=== PATIENT | male | born 1955 | race Caucasian/White ===

== ENCOUNTER → 2016-08-22 | Outpatient (CLI) | payer BC ==
[2016-08-22 12:31] LABS: Urine Bilirubin Negative (Negative); Urine Blood Negative /uL (Negative); Urine Color Yellow (Yellow); Urine Glucose Normal (Normal); Urine Ketone Negative (Negative); Urine Nitrite Negative (Negative); Urine Urobilinogen Normal (Negative)
[2016-08-22 12:35] LABS: Basophils # (auto) 0 uL; Basophils % (auto) 0.5 % (0.0-2.0); Eosinophils # (auto) 0.1 uL; Eosinophils % (auto) 1.1 % (0.0-7.0); Hematocrit 45.5 % (41.0-53.0); Hemoglobin 15.2 g/dL (13.5-17.5); Lymphocytes # (auto) 1.9 uL; Lymphocytes % (auto) 37.8 % (10.0-50.0); Mean Corpuscular Hemoglobin 30.3 pg (28.0-32.0); Mean Corpuscular Hgb Conc. 33.4 g/dL (32.0-36.0); Mean Corpuscular Volume 90.7 fL (80.0-100.0); Mean Platelet Volume 8.5 fL (7.4-10.4); Monocytes # (auto) 0.4 uL; Monocytes % (auto) 8.6 % (0.0-12.0); Neutrophils # (auto) 2.6 uL; Platelet Count (auto) 233 10^3/uL (140-450); Red Cell Distribution Width 13.7 % (11.6-16.0)
[2016-08-22 13:16] LABS: Albumin 4.6 g/dL (3.4-5.0); BUN/Creatinine Ratio 16.6; Bilirubin, Total 0.7 mg/dL (0.2-1.0); Calcium 10.6 mg/dL (8.5-10.1); Potassium 4.4 mmol/L (3.5-5.1); Total Protein 8.1 g/dL (6.4-8.2)
[2016-08-22 13:33] LABS: Bilirubin, Direct 0.3 mg/dL (0-0.2)
== END | disposition home or self-care (01) ==
LOC: LAB 10:30
PROVIDERS: ATTEND Internal Medicine Cardiovascular Disease
DX: I10 Essential (primary) hypertension (principal); E78.00 Pure hypercholesterolemia, unspecified; K74.1 Hepatic sclerosis; E11.9 Type 2 diabetes mellitus without complications; R97.20 Elevated prostate specific antigen [PSA]; R53.81 Other malaise; E03.9 Hypothyroidism, unspecified; D64.9 Anemia, unspecified; E55.9 Vitamin D deficiency, unspecified; N39.0 Urinary tract infection, site not specified
CPT/HCPCS: 36415; 80048; 80061; 80076; 81003; 82306; 83036; 84153; 84403; 84443; 85025

== ENCOUNTER → 2017-05-15 | Outpatient (CLI) | payer BC, OTHER ==
[~2017-05-15] VITALS: Ht 175.3 cm; Wt 122.9 kg
== END | disposition home or self-care (01) ==
LOC: Rad HDHVI 09:59
PROVIDERS: ATTEND Internal Medicine Cardiovascular Disease
DX: I47.1 Supraventricular tachycardia (principal); N28.9 Disorder of kidney and ureter, unspecified; R07.89 Other chest pain; E11.65 Type 2 diabetes mellitus with hyperglycemia
CPT/HCPCS: 78452; 93017; 96374; A9500

== ENCOUNTER → 2018-03-17 | Outpatient (CLI) | payer BC, OTHER ==
[2018-03-17 11:46] VITALS: BP 142/90
[2018-03-17 12:18] VITALS: BP 159/99
== END | disposition home or self-care (01) ==
LOC: CHF HDHVI 12:01
PROVIDERS: ATTEND Internal Medicine Cardiovascular Disease
DX: I10 Essential (primary) hypertension (principal); E11.9 Type 2 diabetes mellitus without complications
CPT/HCPCS: G0463

== ENCOUNTER → 2018-04-17 | Outpatient (CLI) | payer BC, OTHER ==
[~2018-04-17] VITALS: Ht 175.3 cm; Wt 122.9 kg
== END | disposition home or self-care (01) ==
LOC: Rad HDHVI 08:15
PROVIDERS: ATTEND Internal Medicine Cardiovascular Disease
DX: G47.30 Sleep apnea, unspecified (principal); R06.02 Shortness of breath
CPT/HCPCS: 78452; 93017; 96374; A9500

== ENCOUNTER → 2018-11-26 | Outpatient (CLI) | payer BC, OTHER | END | disposition home or self-care (01) | LOC: LAB 09:31 | PROVIDERS: ATTEND Internal Medicine Cardiovascular Disease | DX: E11.59 Type 2 diabetes mellitus with other circulatory complications (principal); E11.40 Type 2 diabetes mellitus with diabetic neuropathy, unspecified | CPT/HCPCS: 36415; 83036 ==

== ENCOUNTER → 2019-03-26 | Outpatient (CLI) | payer BC, OTHER | END | disposition home or self-care (01) | LOC: LAB 08:51 | PROVIDERS: ATTEND Internal Medicine Cardiovascular Disease | DX: E11.9 Type 2 diabetes mellitus without complications (principal) | CPT/HCPCS: 36415; 83036 ==

== ENCOUNTER → 2019-04-22 | Outpatient (CLI) | payer BC, OTHER ==
[~2019-04-22] VITALS: Ht 175.3 cm; Wt 117.0 kg
== END | disposition home or self-care (01) ==
LOC: Rad HDHVI 13:25
PROVIDERS: ATTEND Internal Medicine Cardiovascular Disease
DX: E11.9 Type 2 diabetes mellitus without complications (principal); E78.5 Hyperlipidemia, unspecified; R21 Rash and other nonspecific skin eruption; L30.9 Dermatitis, unspecified; I10 Essential (primary) hypertension; Z82.49 Family history of ischemic heart disease and other diseases of the circulatory system
CPT/HCPCS: 78452; 93017; 96374; A9500

== ENCOUNTER → 2020-04-18 | Outpatient (CLI) | payer MEDICARE, BC, OTHER | END | disposition home or self-care (01) | LOC: Rad HDHVI 13:52 | PROVIDERS: ATTEND Internal Medicine Cardiovascular Disease | DX: I51.7 Cardiomegaly (principal); R06.02 Shortness of breath; I25.9 Chronic ischemic heart disease, unspecified | CPT/HCPCS: 93306 ==

== ENCOUNTER → 2020-04-25 | Outpatient (CLI) | payer MEDICARE, BC, OTHER ==
[~2020-04-25] VITALS: Ht 175.3 cm; Wt 114.3 kg
== END | disposition home or self-care (01) ==
LOC: Rad HDHVI 08:22
PROVIDERS: ATTEND Internal Medicine Cardiovascular Disease
DX: I10 Essential (primary) hypertension (principal); E11.9 Type 2 diabetes mellitus without complications; E78.00 Pure hypercholesterolemia, unspecified; Z82.49 Family history of ischemic heart disease and other diseases of the circulatory system
CPT/HCPCS: 78452; 93017; 96374; A9500

== ENCOUNTER → 2020-10-03 | Outpatient (CLI) | payer MEDICARE, BC, OTHER ==
[2020-10-03 12:43] LABS: Basophils # (auto) 0 10 ^3/uL (0-0.2); Basophils % (auto) 0.4 % (0.0-2.0); Eosinophils # (auto) 0.1 10 ^3/uL (0-0.8); Eosinophils % (auto) 1.5 % (0.0-7.0); Hematocrit 49.6 % (41.0-53.0); Hemoglobin 17.2 g/dL (13.5-17.5); Lymphocytes # (auto) 2.3 10 ^3/uL (0.4-5.4); Lymphocytes % (auto) 34.7 % (10.0-50.0); Mean Corpuscular Hemoglobin 30.8 pg (28.0-32.0); Mean Corpuscular Hgb Conc. 34.6 g/dL (32.0-36.0); Mean Corpuscular Volume 88.9 fL (80.0-100.0); Monocytes # (auto) 0.5 10 ^3/uL (0-1.3); Monocytes % (auto) 7.5 % (0.0-12.0); Neutrophils # (auto) 3.7 10 ^3/uL (1.6-8.6); Neutrophils % (auto) 55.9 % (37.0-80.0); Nucleated Red Blood Cells % 0.1 %; Platelet Count (auto) 191 10^3/uL (140-450); Red Blood Cells 5.58 10^6/uL (4.5-5.90); Red Cell Distribution Width 13.2 % (11.8-14.3); Urine Blood Negative /uL (Negative); Urine Specific Gravity 1.024 (1.001-1.035); White Blood Cell 6.7 10^3/uL (4.4-10.8)
[2020-10-03 12:55] LABS: Albumin 4.4 g/dL (3.4-5.0); Calcium 9.5 mg/dL (8.5-10.1); Potassium 3.5 mmol/L (3.5-5.1)
[2020-10-03 13:00] LABS: BUN/Creatinine Ratio 18.6; Bilirubin, Direct 0.2 mg/dL (0-0.2); Bilirubin, Total 0.7 mg/dL (0.2-1.0); Total Protein 7.5 g/dL (6.4-8.2)
== END | disposition home or self-care (01) ==
LOC: LAB 09:58
PROVIDERS: ATTEND Internal Medicine Cardiovascular Disease
DX: C61 Malignant neoplasm of prostate (principal); D51.3 Other dietary vitamin B12 deficiency anemia; I10 Essential (primary) hypertension; E11.9 Type 2 diabetes mellitus without complications; E55.9 Vitamin D deficiency, unspecified; D64.9 Anemia, unspecified; R00.2 Palpitations; R53.1 Weakness; R30.0 Dysuria
CPT/HCPCS: 36415; 80048; 80076; 81003; 82306; 83036; 84153; 84403; 84443; 85025

== ENCOUNTER → 2021-04-19 | Outpatient (CLI) | payer MEDICARE, BC, OTHER | END | disposition home or self-care (01) | LOC: Rad HDHVI 08:40 | PROVIDERS: ATTEND Internal Medicine Cardiovascular Disease | DX: R06.02 Shortness of breath (principal) | CPT/HCPCS: 93306 ==

== ENCOUNTER 2021-08-01 06:18 | Inpatient (IN) | payer OTHER ==
[2021-07-28 11:49] LABS: Urine Bacteria NONE SEEN /hpf (None Seen); Urine Blood Negative /uL (Negative); Urine Specific Gravity 1.017 (1.001-1.035); Urine WBC <1 /hpf (0 - 3)
[2021-07-28 12:11] LABS: Potassium 3.4 mmol/L (3.5-5.1)
[2021-07-28 12:16] LABS: Basophils # (auto) 0 10 ^3/uL (0-0.2); Basophils % (auto) 0.3 % (0.0-2.0); Eosinophils # (auto) 0.1 10 ^3/uL (0-0.8); Eosinophils % (auto) 1.3 % (0.0-7.0); Hematocrit 44.5 % (41.0-53.0); Hemoglobin 15.4 g/dL (13.5-17.5); Lymphocytes # (auto) 2.1 10 ^3/uL (0.4-5.4); Lymphocytes % (auto) 39.2 % (10.0-50.0); Mean Corpuscular Hemoglobin 30.3 pg (28.0-32.0); Mean Corpuscular Hgb Conc. 34.7 g/dL (32.0-36.0); Mean Corpuscular Volume 87.4 fL (80.0-100.0); Monocytes # (auto) 0.5 10 ^3/uL (0-1.3); Neutrophils # (auto) 2.7 10 ^3/uL (1.6-8.6); Neutrophils % (auto) 50.2 % (37.0-80.0); Nucleated Red Blood Cells % 0.1 %; Red Blood Cells 5.09 10^6/uL (4.5-5.90); Red Cell Distribution Width 13.2 % (11.8-14.3); White Blood Cell 5.4 10^3/uL (4.4-10.8)
[2021-07-28 12:18] LABS: Albumin 4.3 g/dL (3.4-5.0); BUN/Creatinine Ratio 16.5; Calcium 9.4 mg/dL (8.5-10.1); Total Protein 7.3 g/dL (6.4-8.2)
[~2021-08-01] VITALS: Ht 175.3 cm; Wt 69.0 kg
[~2021-08-01 06:18] MED LIST: ALPR0.25 PO; ASPI-543 PO; CARI-277 PO; DUPI1INJ SC; EMPA1TAB3 PO; EZET10TA24 PO; FENO145T27 PO; HYDR12.56 PO; LOSA25TA38 PO; MULTTAB99 PO; OMEG100078 PO; SEMA2INJ SC; TADA5TAB11 PO; TRAM50TA2 PO
[2021-08-01] MEDS ORDERED: ceFAZolin 1GM/50ML 100 ML IV ONE (06:57)
[2021-08-01] MEDS ORDERED: TRANEXAMIC ACID 20 ML ONE (06:58)
[2021-08-01] MEDS ORDERED: VANCOMYCIN HCL 1000 MG VL ONE (07:00)
[2021-08-01] MEDS ORDERED: KETOROLAC TROMETH 30 MG/ML 1ML VIAL ONE (07:00)
[2021-08-01] MEDS ORDERED: MORPHINE SULF PF 2 MG/2 ML SYRG ONE ×2 (07:08→07:11)
[2021-08-01] MEDS ORDERED: BUPIVACAINE 0.25% INJ 50ML VIAL ONE (07:12)
[2021-08-01] MEDS ORDERED: ROCURONIUM 10MG/ML 10ML VIAL IV ONE (07:19)
[2021-08-01] MEDS ORDERED: fentaNYL CITRATE 5 ML ONE (07:19)
[2021-08-01] MEDS ORDERED: MIDAZOLAM HCL 2MG/2ML 2ml VIAL (1mg/ml) ONE (07:19)
[2021-08-01] MEDS ORDERED: LIDOCAINE 2% (LOCAL ANESTH.) PF 5ml SDV ONE (08:20)
[2021-08-01] MEDS ORDERED: PROPOFOL 10 MG/ML 20 ML IV ONE (08:20)
[2021-08-01] MEDS ORDERED: ONDANSETRON HCL 4 MG/2 ML VIAL ONE (08:20)
[2021-08-01] MEDS ORDERED: HYDROmorphone HCL 2 MG/ML VL ONE (08:20)
[2021-08-01] MEDS ORDERED: HYDROmorphone HCL 2 MG/ML VL IV PRN (08:45)
[2021-08-01] MEDS ORDERED: ONDANSETRON HCL 4 MG/2 ML VIAL IV PRN ×2 (08:45→11:00)
[2021-08-01] MEDS ORDERED: SUGAMMADEX 200mg/2ml Vial (100MG/ML) IV ONE (10:00)
[2021-08-01] MEDS ORDERED: ALPRAZolam 0.25 MG TAB PO PRN (10:45)
[2021-08-01] MEDS ORDERED: traMADol HCL 50 MG TAB PO PRN (10:45)
[2021-08-01] MEDS ORDERED: DEXTROSE (50%) 50ML SYRG IV PRN (11:00)
[2021-08-01] MEDS ORDERED: ACETAMINOPHEN 325 MG TAB PO PRN (11:00)
[2021-08-01] MEDS ORDERED: MORPHINE SULFATE INJECTION 2 MG/ML SYRG IV PRN (11:00)
[2021-08-01] MEDS ORDERED: NITROGLYCERIN 0.4 MG SL TAB SL PRN (11:00)
[2021-08-01] MEDS: HYDROmorphone HCL 2 MG/ML VL IV PRN ×5 (11:13→21:30)
[2021-08-01] MEDS: InsuLIN REG 1unit/0.01ml Soln (100units/ml) SC SCH ×3 (11:53→21:39)
[2021-08-01] MEDS: LACTATED RINGER'S 1,000 ML IV SCH ×2 (11:53→21:34)
[2021-08-01] MEDS: ACCU-CHEK COMFORT CURVE STRIP VI SCH ×3 (11:54→21:35)
[2021-08-01 12:00] VITALS: BP 102/71
[2021-08-01] MEDS: ceFAZolin 1GM/50ML 50 ML IV SCH ×2 (13:25→18:20)
[2021-08-01 16:00] VITALS: BP 106/67
[2021-08-01] MEDS: DOCUSATE SOD 100 MG CAP PO SCH (21:28)
[2021-08-01 22:00] VITALS: BP 104/70
[2021-08-01] MEDS: HYDROcodone-ACET 5/325MG TAB PO PRN (22:51)
[2021-08-02] MEDS: ceFAZolin 1GM/50ML 50 ML IV SCH (02:23)
[2021-08-02] MEDS: HYDROmorphone HCL 2 MG/ML VL IV PRN (02:37)
[2021-08-02 06:00] VITALS: BP 106/67
[2021-08-02 06:14] LABS: Basophils # (auto) 0 10 ^3/uL (0-0.2); Basophils % (auto) 0.2 % (0.0-2.0); Eosinophils # (auto) 0 10 ^3/uL (0-0.8); Eosinophils % (auto) 0.6 % (0.0-7.0); Hematocrit 35.4 % (41.0-53.0); Hemoglobin 11.8 g/dL (13.5-17.5); Lymphocytes # (auto) 1.8 10 ^3/uL (0.4-5.4); Lymphocytes % (auto) 21.8 % (10.0-50.0); Mean Corpuscular Hgb Conc. 33.5 g/dL (32.0-36.0); Mean Corpuscular Volume 89.5 fL (80.0-100.0); Monocytes % (auto) 12.2 % (0.0-12.0); Neutrophils # (auto) 5.4 10 ^3/uL (1.6-8.6); Neutrophils % (auto) 65.2 % (37.0-80.0); Nucleated Red Blood Cells % 0.2 %; Red Blood Cells 3.95 10^6/uL (4.5-5.90); Red Cell Distribution Width 13.5 % (11.8-14.3); White Blood Cell 8.3 10^3/uL (4.4-10.8)
[2021-08-02 06:36] LABS: Potassium 3.6 mmol/L (3.5-5.1)
[2021-08-02 06:38] LABS: BUN/Creatinine Ratio 16.5
[2021-08-02] MEDS: ACCU-CHEK COMFORT CURVE STRIP VI SCH ×2 (06:56→11:30)
[2021-08-02] MEDS: LACTATED RINGER'S 1,000 ML IV SCH (06:56)
[2021-08-02] MEDS: HYDROcodone-ACET 5/325MG TAB PO PRN (06:57)
[2021-08-02] MEDS: InsuLIN REG 1unit/0.01ml Soln (100units/ml) SC SCH ×2 (07:00→11:30)
[2021-08-02 08:34] VITALS: BP 118/74
[2021-08-02 09:49] LABS: Hematocrit 39.9 % (41.0-53.0); Hemoglobin 13.5 g/dL (13.5-17.5)
[2021-08-02] MEDS ORDERED: Fenofibrate 145MG TAB PO SCH (10:00)
[2021-08-02] MEDS ORDERED: HCTZ 25 MG TAB PO SCH (10:00)
[2021-08-02] MEDS ORDERED: PATIENTS OWN MEDICATION (Hydrochlorothiazide 12.5 MG) PO SCH (10:00)
[2021-08-02] MEDS ORDERED: LOSARTAN POTASSIUM 25 MG TAB PO SCH (10:00)
[2021-08-02] MEDS ORDERED: MULTIPLE VITAMIN TAB PO SCH (10:00)
[2021-08-02] MEDS ORDERED: TADALAFIL 5 MG PO SCH ×2 (10:00)
[2021-08-02] MEDS ORDERED: FATTY ACIDS PO SCH (10:00)
[2021-08-02] MEDS ORDERED: EZETIMIBE SIMVASTATIN PO SCH (10:00)
[2021-08-02] MEDS ORDERED: OMEGA PO SCH (10:00)
[2021-08-02] MEDS ORDERED: Semaglutide (Ozempic) SC SCH (10:00)
[2021-08-02] MEDS ORDERED: Empagliflozin (Jardiance) 25 MG TAB PO SCH (10:00)
[2021-08-02] MEDS ORDERED: ASPirin-EC 81 mg tab PO SCH (10:00)
[2021-08-02] MEDS ORDERED: KETOROLAC TROMETH 30 MG/ML 1ML VIAL IV SCH (10:00)
[2021-08-02 12:26] VITALS: BP 118/74
[2021-08-02 12:43] VITALS: BP 124/76
[2021-08-02] MEDS: DOCUSATE SOD 100 MG CAP PO SCH (12:46)
[2021-08-02 16:02] VITALS: BP 124/76
[2021-08-02 17:00] VITALS: BP 126/74
[2021-08-08] MEDS ORDERED: DUPILUMAB SC SCH (12:00)
== END 2021-08-02 17:15 | disposition home or self-care (01) | DRG 483 ==
LOC: SUR 06:18 → OVERFLOW 10:46 → UNDOADMIN 10:46 → WEST WING 10:51 → OBSVTOIN 10:51 → WEST WING 13:32 → OVERFLOW 13:32
PROVIDERS: ADMIT Orthopaedic Surgery Sports Medicine; ATTEND Orthopaedic Surgery Sports Medicine
PROC: 0RRK00Z Replacement of Left Shoulder Joint with Reverse Ball and Socket Synthetic Substitute, Open Approach (ICD-10-PCS; principal; 2021-08-01 07:29)
DX: M19.012 Primary osteoarthritis, left shoulder (principal); M75.112 Incomplete rotator cuff tear or rupture of left shoulder, not specified as traumatic; Z20.822 Contact with and (suspected) exposure to COVID-19; Z88.2 Allergy status to sulfonamides
CPT/HCPCS: 36415; 73020; 80048; 80053; 81001; 82962; 85014; 85018; 85025; 86850; 86900; 86901; 96365; 96366; 96372; 96375; 96376; 97163; A4565; G0378; J0690; J1815; J1885; J2001; J2250; J2405; J2704; J3490

== ENCOUNTER → 2021-12-15 | Outpatient (CLI) | payer MEDICARE, BC ==
[2021-12-15 11:44] LABS: Basophils # (auto) 0 10 ^3/uL (0-0.2); Basophils % (auto) 0.4 % (0.0-2.0); Eosinophils # (auto) 0.1 10 ^3/uL (0-0.8); Eosinophils % (auto) 1.6 % (0.0-7.0); Hematocrit 48.1 % (41.0-53.0); Hemoglobin 15.7 g/dL (13.5-17.5); Lymphocytes # (auto) 2.2 10 ^3/uL (0.4-5.4); Lymphocytes % (auto) 38.3 % (10.0-50.0); Mean Corpuscular Hemoglobin 28.9 pg (28.0-32.0); Mean Corpuscular Hgb Conc. 32.7 g/dL (32.0-36.0); Mean Corpuscular Volume 88.3 fL (80.0-100.0); Monocytes # (auto) 0.5 10 ^3/uL (0-1.3); Monocytes % (auto) 8.4 % (0.0-12.0); Neutrophils % (auto) 51.3 % (37.0-80.0); Red Blood Cells 5.44 10^6/uL (4.5-5.90); Red Cell Distribution Width 13.6 % (11.8-14.3); White Blood Cell 5.8 10^3/uL (4.4-10.8)
[2021-12-15 12:02] LABS: Urine Blood Negative /uL (Negative); Urine Specific Gravity 1.025 (1.001-1.035)
[2021-12-15 12:10] LABS: Free T4 (Free Thyroxine) 1.35 ng/dL (0.89-1.76); Prostate Specific Antigen 0.01 ng/mL (0.0-4.0)
[2021-12-15 12:24] LABS: Cholesterol 138 mg/dL (< 200); HDL Cholesterol 45 mg/dL (40-59); LDL Cholesterol 82 mg/dL (< 100); Triglycerides 98 mg/dL (< 150)
[2021-12-15 13:23] LABS: Anion Gap 8 (5-15); Carbon Dioxide 24 mmol/L (21-32); Chloride 106 mmol/L (98-107); Potassium 4.3 mmol/L (3.5-5.1); Sodium 138 mmol/L (136-145)
[2021-12-15 13:24] LABS: Alanine Aminotransferase 40 U/L (16-61); Alkaline Phosphatase 54 U/L (45-117); Aspartate Aminotransferase 25 U/L (15-37); BUN/Creatinine Ratio 17.3; Bilirubin, Total 0.8 mg/dL (0.2-1.0); Blood Urea Nitrogen 17 mg/dL (7-18); GFR African American 98 mL/min; GFR Non-African American 81 mL/min; Glucose 130 mg/dL (74-106); Total Protein 7.2 g/dL (6.4-8.2)
== END | disposition home or self-care (01) ==
LOC: LAB 08:44
PROVIDERS: ATTEND Internal Medicine Cardiovascular Disease
DX: D51.3 Other dietary vitamin B12 deficiency anemia (principal); D64.9 Anemia, unspecified; E11.9 Type 2 diabetes mellitus without complications; E55.9 Vitamin D deficiency, unspecified; I10 Essential (primary) hypertension; R00.2 Palpitations; R53.1 Weakness; R30.0 Dysuria; C61 Malignant neoplasm of prostate
CPT/HCPCS: 36415; 80053; 80061; 81003; 82306; 82607; 83036; 84153; 84403; 84439; 84443; 85025

== ENCOUNTER → 2022-04-27 | Outpatient (CLI) | payer MEDICARE, BC | END | disposition home or self-care (01) | LOC: Rad HDHVI 10:26 | PROVIDERS: ATTEND Internal Medicine Cardiovascular Disease | DX: E11.9 Type 2 diabetes mellitus without complications (principal); R06.02 Shortness of breath | CPT/HCPCS: 36415; 71046; 83036 ==

== ENCOUNTER → 2022-05-01 | Outpatient (CLI) | payer MEDICARE, BC | END | disposition home or self-care (01) | LOC: Rad HDHVI 09:04 | PROVIDERS: ATTEND Internal Medicine Cardiovascular Disease | DX: I07.1 Rheumatic tricuspid insufficiency (principal); R07.89 Other chest pain; E78.5 Hyperlipidemia, unspecified; I71.9 Aortic aneurysm of unspecified site, without rupture | CPT/HCPCS: 93306 ==

== ENCOUNTER → 2022-05-09 | Outpatient (CLI) | payer MEDICARE, BC ==
[~2022-05-09] VITALS: Ht 175.3 cm; Wt 109.3 kg
== END | disposition home or self-care (01) ==
LOC: Rad HDHVI 12:50
PROVIDERS: ATTEND Internal Medicine Cardiovascular Disease
DX: I20.9 Angina pectoris, unspecified (principal); I10 Essential (primary) hypertension; R06.02 Shortness of breath; E11.65 Type 2 diabetes mellitus with hyperglycemia; E11.21 Type 2 diabetes mellitus with diabetic nephropathy; E11.40 Type 2 diabetes mellitus with diabetic neuropathy, unspecified; Z82.49 Family history of ischemic heart disease and other diseases of the circulatory system
CPT/HCPCS: 78452; 93017; 96374; A9500

== ENCOUNTER → 2022-05-14 | Outpatient (CLI) | payer MEDICARE, BC | END | disposition home or self-care (01) | LOC: Rad HDHVI 10:58 | PROVIDERS: ATTEND Internal Medicine Cardiovascular Disease | DX: I65.21 Occlusion and stenosis of right carotid artery (principal); I10 Essential (primary) hypertension; R07.89 Other chest pain | CPT/HCPCS: 93880 ==

== ENCOUNTER → 2022-12-12 | Outpatient (CLI) | payer MEDICARE, BC ==
[~2022-12-12] MED LIST changes: -HYDR12.56 PO; +HYDR12.59 PO; +IOHEXOL 350 MG/ML 100ML IJ ONE; +LOSA25TA15 PO; -LOSA25TA38 PO; +OMEG-20 PO; -OMEG100078 PO
[2022-12-12 16:11] VITALS: BP 142/78
[2022-12-12 16:23] VITALS: BP 142/73
== END | disposition home or self-care (01) ==
LOC: Rad HDHVI 15:59
PROVIDERS: ATTEND Internal Medicine Cardiovascular Disease
DX: K42.9 Umbilical hernia without obstruction or gangrene (principal); K46.9 Unspecified abdominal hernia without obstruction or gangrene; K76.0 Fatty (change of) liver, not elsewhere classified; R10.9 Unspecified abdominal pain
CPT/HCPCS: 74177; G0463; Q9967

== ENCOUNTER → 2023-04-29 | Outpatient (CLI) | payer MEDICARE, BC ==
[~2023-04-29] VITALS: Ht 175.3 cm; Wt 109.8 kg
[~2023-04-29] MED LIST changes: -IOHEXOL 350 MG/ML 100ML IJ ONE
== END | disposition home or self-care (01) ==
LOC: Rad HDHVI 08:11
PROVIDERS: ATTEND Internal Medicine Cardiovascular Disease
DX: I65.23 Occlusion and stenosis of bilateral carotid arteries (principal); R07.89 Other chest pain; I10 Essential (primary) hypertension; R06.02 Shortness of breath; R00.2 Palpitations; E78.00 Pure hypercholesterolemia, unspecified; Z82.49 Family history of ischemic heart disease and other diseases of the circulatory system
CPT/HCPCS: 78452; 93017; 93880; 96374; A9500

== ENCOUNTER → 2024-03-25 | Outpatient (CLI) | payer MEDICARE, BC ==
[~2024-03-25] MED LIST changes: +LOSA-533 PO; -LOSA25TA15 PO; +READI-CAT 2 (BARIUM SULF)(VANILLA SMOOTHIE) 450ML ONE
== END | disposition home or self-care (01) ==
LOC: Rad HDHVI 09:18
PROVIDERS: ATTEND Internal Medicine Cardiovascular Disease
DX: R10.9 Unspecified abdominal pain (principal)
CPT/HCPCS: 74176

== ENCOUNTER → 2024-04-10 | Outpatient (CLI) | payer MEDICARE, BC ==
[~2024-04-10] VITALS: Ht 175.3 cm; Wt 109.8 kg
[~2024-04-10] MED LIST changes: -READI-CAT 2 (BARIUM SULF)(VANILLA SMOOTHIE) 450ML ONE
== END | disposition home or self-care (01) ==
LOC: Rad HDHVI 08:31
PROVIDERS: ATTEND Internal Medicine Cardiovascular Disease
DX: I10 Essential (primary) hypertension (principal); E78.00 Pure hypercholesterolemia, unspecified; E11.21 Type 2 diabetes mellitus with diabetic nephropathy; K40.90 Unilateral inguinal hernia, without obstruction or gangrene, not specified as recurrent; Z82.49 Family history of ischemic heart disease and other diseases of the circulatory system
CPT/HCPCS: 78452; 93017; 96374; A9500

== ENCOUNTER → 2024-04-13 | Outpatient (CLI) | payer MEDICARE, BC | END | disposition home or self-care (01) | LOC: Rad HDHVI 08:01 | PROVIDERS: ATTEND Internal Medicine Cardiovascular Disease | DX: I10 Essential (primary) hypertension (principal); R06.02 Shortness of breath | CPT/HCPCS: 93306 ==

== ENCOUNTER 2024-09-14 09:57 | Inpatient (IN) | payer OTHER, MEDICARE ==
[~2024-09-14] VITALS: Ht 175.3 cm; Wt 105.7 kg
--- NOTE | 2024-09-14 10:16 | ED.PDOC ---
GI ASSESSMENT HPI Comments 68 year old male presents to the ED with a chief complaint of abdominal pain onset 1 week. Patient states he has been experiencing epigastric pain with nausea and burping for the past week. Patient noticed blood in stool this morning, bright red blood. Rates pain /. PMHx hemorrhoids, HTN, DM. Denies chest pain, shortness of breath, vomiting, diarrhea, cough, congestion, hematuria, dysuria. No other symptoms or modifying factors present at this time. Chief Complaint: Abdominal Pain Time Seen by MD: 10:10 Primary Care Provider: yvrose Reviewed Notes: Medications, Allergies Allergies: Coded Allergies: Sulfa Antibiotics (Verified Allergy, Unknown, 02/03/16) Home Meds Reported Medications Dupilumab (Dupixent) 300 Mg/2 Ml Inj, 300 MG SC 2XW, INJ 07/28/21 Tadalafil (Cialis) 5 Mg Tab, 1 TAB PO DAILY, #30 TAB 5 Refills 07/28/21 Alprazolam (Xanax) 0.25 Mg Tb, 1 TAB PO BIDPRN PRN for ANXIETY, #30 TAB 07/28/21 Empagliflozin (Jardiance) 25 Mg Tab, 25 MG PO DAILY, TAB 07/28/21 Semaglutide (Ozempic) 2 Mg/1.5 Ml Inj, 1 MG SC QWEEKLY, INJ 07/28/21 Fenofibrate (FENOFIBRATE) 145 Mg Tab, 1 TAB PO DAILY, #30 TAB 5 Refills 07/28/21 Carisoprodol (Soma) 350 Mg Tab, 350 MG PO, TAB 07/28/21 Tramadol Hcl (Tramadol Hcl) 50 Mg Tab, 100 MG PO BIDPRN PRN for PAIN SCALE 7 THRU 10, MG 07/28/21 Losartan Potassium (Losartan Potassium) 25 Mg Tab, 25 MG PO DAILY for 30 Days, MG 07/28/21 [place]-3 Fatty Acids (FISH OIL) 1,000 Mg Cap, 1000 MG PO DAILY, CAP 07/28/21 Multiple Vitamin (Mvi Tab) 1 Tab Tb, 1 TAB PO DAILY, TAB 07/28/21 Hydrochlorothiazide (Hydrochlorothiazide) 12.5 Mg Cap, 12.5 MG PO DAILY for 30 Days, MG 07/28/21 Aspirin (Aspir-Low) 81 Mg Tab, 81 MG PO DAILY for 30 Days, MG 07/28/21 Ezetimibe-Simvastatin (Vytorin) 1 Tab Tab, 1 TAB PO DAILY, #30 TAB 5 Refills 07/28/21 Information Source: Patient Mode of Arrival: Ambulatory Timing: Weeks Duration: Since onset Prehospital treatment: None Quality: Sharp Vomitus: None Severity: Moderate Recent: None Recent Hx of: None Pain Location: Epigastric Modifying Factors: Nothing Associated sign and symptoms: Nausea, Abdominal Pain, Blood in Stool Past Medical History PAST MEDICAL HISTORY: DM, HTN Past Medical History (Other): hemorrhoids, Surgical History: Hernia Repair Family History Family History: Reviewed,noncontributory to illness, No family hx of Cancer, No family hx of DM, No family hx of Heart asaf, No family hx of HTN, No family hx ofKidney asaf, No family hx of Liver asaf, No family hx of Lung asaf, No family hx of Stroke Social History Smoker: Non-Smoker Alcohol: Denies ETOH Use Drugs: Denies Drug Use Lives In: Home Constitutional: reports: sweats; denies: chills, diaphoresis, fatigue, fever, malaise, weakness, others EENTM: denies: blurred vision, double vision, ear bleeding, ear discharge, ear drainage, ear pain, ear ringing, eye pain, eye redness, hearing loss, mouth pain, mouth swelling, nasal discharge, nose bleeding, nose congestion, nose pain, photophobia, tearing, throat pain, throat swelling, voice changes, others Respiratory: denies: cough, hemoptysis, orthopnea, SOB at rest, shortness of breath, SOB with excertion, stridor, wheezing, others Cardiovascular: denies: chest pain, dizzy spells, diaphoresis, Dyspnea on exertion, edema, irregular heart beat, left arm pain, lightheadedness, palpitations, PND, syncope, others Gastrointestinal: reports: abdominal pain, nausea, rectal bleeding; denies: abdomen distended, blood streaked bowels, constipated, diarrhea, dysphagia, difficulty swallowing, hematemesis, melena, poor appetite, poor fluid intake, rectal pain, vomiting, others Genitourinary: denies: burning, dysuria, flank pain, frequency, hematuria, incontinence, penile discharge, penile sore, pain, testicle pain, testicle swelling, urgency, others Neurological: denies: dizziness, fainting, headache, left sided numbness, left sided weakness, numbness, paresthesia, pre-existing deficit, right sided numbness, right sided weakness, seizure, speech problems, tingling, tremors, weakness, others Musculoskeletal: denies: back pain, gout, joint pain, joint swelling, muscle pain, muscle stiffness, neck pain, others Integumetry: denies: bruises, change in color, change in hair/nails, dryness, laceration, lesions, lumps, rash, wounds, others Allergic/Immunocompromised: denies: Difficulty Healing, Frequent Infections, Hives, Itching, others Hematologic/Lymphatic: denies: anemia, blood clots, easy bleeding, easy bruising, swollen glands, others Endocrine: denies: excessive hunger, excessive sweating, excessive thirst, excessive urination, flushing, intolerance to cold, intolerance to heat, un explained weight gain, unexplained weight loss, others Psychiatric: denies: anxiety, bipolar disorder, depression, hopeless, panic disorder, schizophrenia, sleepless, suicidal, others All Other Systems: Reviewed and Negative Physical Exam General Appearance: Moderate Distress, Normal HEENT: Normal ENT Inspection, Pharynx Normal, TMs Normal Neck: Full Range of Motion, Non-Tender, Normal, Normal Inspection Respiratory: Chest Non-Tender, Lungs Clear, No Accessory Muscle Use, No Respiratory Distress, Normal Breath Sounds Cardiovascular: No Edema, No JVD, No Murmur, No Gallop, Normal Peripheral Pulse s, Regular Rate/Rhythm Breast Exam: Deferred Gastrointestinal: Diffuse, No Organomegaly, No Pulsatile Mass, Normal Bowel Sounds, Soft Genitalia: Deferred Pelvic: Deferred Rectal: Deferred Extremities: No calf tenderness, Normal capillary refill, Normal inspection, Normal range of motion, Non-tender, No pedal edema Musculoskeletal : Apperance: Normal Neurologic: Alert, exerciser horse II-XII nml as Tested, No Motor Deficits, Normal Affect, Normal Mood, No Sensory Deficits Cerebellar Function: Normal Reflexes: Normal Skin: Dry, Normal Color, Warm Peripheral Pulses: 3+ Radial (R), 3+ Radial (L) Lymphatic: No Adenopathy Was a procedure done? Was a procedure done?: No GI differential Dx Differential Diagnosis: Constipation, Diverticular disease, Esophagitis, Gastritis/PUD, Gastroenteritis X-Ray, Labs, Meds, VS Vital Signs Date Time Temp Pulse Resp B/P (MAP) Pulse Ox O2 Delivery O2 Flow Rate FiO2 09/14/24 10:44 98.1 77 18 154/91 (112) 96 98.1 09/14/24 10:44 77 18 96 Room Air 09/14/24 10:15 81 09/14/24 10:06 98.6 86 18 147/105 (119) 96 98.6 Lab Test 09/14/24 10:24 Range/Units White Blood Count 8.3 4.4-10.8 10^3/uL Red Blood Count 6.55 H 4.5-5.90 10^6/uL Hemoglobin 19.6 H 13.5-17.5 g/dL Hematocrit 59.0 H 41.0-53.0 % Mean Corpuscular Volume 90.1 80.0-100.0 fL Mean Corpuscular Hemoglobin 29.9 28.0-32.0 pg Mean Corpuscular Hemoglobin Concent 33.2 32.0-36.0 g/dL Red Cell Distribution Width 14.0 11.8-14.3 % Platelet Count 180 140-450 10^3/uL Mean Platelet Volume 8.0 6.9-10.8 fL Neutrophils (%) (Auto) 65.0 37.0-80.0 % Lymphocytes (%) (Auto) 25.9 10.0-50.0 % Monocytes (%) (Auto) 8.0 0.0-12.0 % Eosinophils (%) (Auto) 0.6 0.0-7.0 % Basophils (%) (Auto) 0.5 0.0-2.0 % Neutrophils # (Auto) 5.4 1.6-8.6 10 ^3/uL Lymphocytes # (Auto) 2.1 0.4-5.4 10 ^3/uL Monocytes # (Auto) 0.7 0-1.3 10 ^3/uL Eosinophils # (Auto) 0.1 0-0.8 10 ^3/uL Basophils # (Auto) 0 0-0.2 10 ^3/uL Nucleated Red Blood Cells 0.8 % Sodium Level 139 136-145 mmol/L Potassium Level 3.9 3.5-5.1 mmol/L Chloride Level 105 98-107 mmol/L Carbon Dioxide Level 26 20-31 mmol/L Anion Gap 8 5-15 Blood Urea Nitrogen 15 9-23 mg/dL Creatinine 1.09 0.700-1.30 mg/dL Glomerular Filtration Rate Calc 73 >90 mL/min BUN/Creatinine Ratio 13.8 10.0-20.0 Serum Glucose 150 H 74-106 mg/dL Calcium Level 10.5 H 8.7-10.4 mg/dL Troponin I High Sensitivity 6 </=54 ng/L Lipase 42 12-53 U/L [place] [id number] Ph: [phone] DIAGNOSTIC IMAGING Diagnostic Imaging Report : [id number] Signed PATIENT: KAREN CABELLO ACCT: [id number] UNIT: [id number] : 1955 LOC: ER ROOM / BED: / AGE / SEX: 68 / M ADM STATUS: REG ER SERVICE 1013 ORDERING PHYSICIAN: MCKENNA MONTANEZ MD PROCEDURE(s): ABPL - CT AB PEL WO CON-NO ORAL OR IV REASON: [facility] ORDER NUMBER(s): [id number], ACCESSION NUMBER(s): [id number] CT ABDOMEN AND PELVIS WITHOUT CONTRAST CLINICAL HISTORY: gibleed TECHNIQUE: Multiple contiguous axial images of the abdomen and pelvis without intravenous contrast. The images were reformatted degenerate coronal and sagittal reconstructions. All CT scans at this medical facility are performed using dose modulation techni ques as appropriate to a performed exam including the following:Automated exposure control was utilized; adjustment of the MA and/or KV according to patient size; and use of iterative reconstruction technique. Radiation Dose Information: CT Dose: CTDI volume is 24 mGy. Dose-length product is 1581 mGy*cm Comparison: CT CT AB PEL WITH ORAL CON ONLY on DOS: 03/25/24, ECIDC on DOS: 1 07/01/21 FINDINGS: Evaluation of the abdomen and pelvis is limited without intravenous contrast. The liver, gallbladder, pancreas, kidneys, adrenal glands, and spleen appear within normal limits. There is no gross evidence of abdominal lymphadenopathy. There is no free fluid or free air. The stomach grossly appears unremarkable. The small and large bowel loops demonstrate normal caliber and distribution. A normal appearing appendix is seen in the right lower quadrant abdomen. The abdominal aorta and IVC appear within normal limits. The bladder appears unremarkable for the degree of distention. Pelvic organ appears within normal limits. There is no gross evidence of a pelvic mass. There is no free fluid collection. Lung bases are clear. There is no acute osseous abnormality. IMPRESSION: 1. There is no acute process in the abdomen and pelvis. HS:Y ATED BY: WILLI PEDRO MD DICTATED DATE/TIME: 09/14/24 1055 SIGNED BY: WILLI PEDRO MD SIGNED DATE/TIME: 09/14/24 1055 CC: Patient alert. Complaining of blood per rectum. Abdomen is soft. Vitals stable. Answering questions. Possibly will need colonoscopy. History of hemorrhoids. Was given Protonix. CT scan of the abdomen reviewed does not show any acute process. GI consultation. EKG reviewed does not show any acute changes. Reviewed his history. Explained to the patient. Continue cardiac monitoring. Time of 1ST Reevaluation: 10:40 Reevaluation 1ST: Unchanged Patient Education/Counseling: Diagnosis, Treatment, Prognosis Family Education/Counseling: No Family Present Additional Information The following tests were ordered, and results were reviewed by me: TROP -x3, CBC, LIPASE, UA, CT AB PEL WO CONTRAST, BMP I reviewed and agreed with the following test results read by other providers:CT AB PEL WO CONTRAST, I discussed treatment and results with medical personnel and: Patient, Comprehensive systems review obtained and negative except for what is stated in the HPI. Departure 1 Departure Time of Disposition: 11:15 Impression: Primary Impression: GI bleed Qualified Codes: K92.2 - Gastrointestinal hemorrhage, unspecified Disposition: 09 ADMITTED INPATIENT Admit to: Med Surg Condition: Guarded Critical Care Note Critical Care Time?: No Stability Stability form required: No Heart Score Heart Score: Heart Score Response (Comments) Value History Slightly Suspicious 0 EKG Normal 0 Age >65 2 Risk Factors >3 or Hx ASHD 2 Troponin Normal limit 0 Total 4 I personally scribed for MCKENNA MONTANEZ MD ([email or web address]) on 09/14/24 at 10:16. Electronically submitted by Betty Anderson ([email or web address]). I personally scribed for MCKENNA MONTANEZ MD ([email or web address]) on 09/14/24 at 10:20. Electronically submitted by Betty Anderson ([email or web address]). I personally scribed for MCKENNA MONTANEZ MD ([email or web address]) on 09/14/24 at 10:25. Electronically submitted by Betty Anderson ([email or web address]). I personally scribed for MCKENNA MONTANEZ MD ([email or web address]) on 09/14/24 at 11:10. Electronically submitted by Betty Anderson ([email or web address]). MCKENNA MONTANEZ MD Sep 14, 2024 10:16
[2024-09-14 10:47] LABS: Chloride 105 mmol/L (98-107); Potassium 3.9 mmol/L (3.5-5.1); Sodium 139 mmol/L (136-145)
[2024-09-14 10:48] LABS: Anion Gap 8 (5-15); Carbon Dioxide 26 mmol/L (20-31)
[2024-09-14 10:49] LABS: Calcium 10.5 mg/dL (8.7-10.4)
[2024-09-14 10:53] LABS: BUN/Creatinine Ratio 13.8 (10.0-20.0); Basophils # (auto) 0 10 ^3/uL (0-0.2); Blood Urea Nitrogen 15 mg/dL (9-23); Neutrophils # (auto) 5.4 10 ^3/uL (1.6-8.6); White Blood Cell 8.3 10^3/uL (4.4-10.8)
[2024-09-14 10:54] LABS: Lipase 42 U/L (12-53)
[2024-09-14 10:55] LABS: Basophils % (auto) 0.5 % (0.0-2.0); Eosinophils # (auto) 0.1 10 ^3/uL (0-0.8); Eosinophils % (auto) 0.6 % (0.0-7.0); Hemoglobin 19.6 g/dL (13.5-17.5); Lymphocytes # (auto) 2.1 10 ^3/uL (0.4-5.4); Lymphocytes % (auto) 25.9 % (10.0-50.0); Mean Corpuscular Hemoglobin 29.9 pg (28.0-32.0); Mean Corpuscular Hgb Conc. 33.2 g/dL (32.0-36.0); Mean Corpuscular Volume 90.1 fL (80.0-100.0); Monocytes # (auto) 0.7 10 ^3/uL (0-1.3); Nucleated Red Blood Cells % 0.8 %; Platelet Count (auto) 180 10^3/uL (140-450); Red Blood Cells 6.55 10^6/uL (4.5-5.90)
--- NOTE | 2024-09-14 10:57 | DVH ---
CT ABDOMEN AND PELVIS WITHOUT CONTRAST CLINICAL HISTORY: gibleed TECHNIQUE: Multiple contiguous axial images of the abdomen and pelvis without intravenous contrast. T he images were reformatted degenerate coronal and sagittal reconstructions. All CT scans at this medical facility are performed using dose modulation techniques as appropriate t o a performed exam including the following:Automated exposure control was utilized; adjustment of the MA and/or KV according to patient size; and use of iterative reconstruction technique. Radiation Dose Information: CT Dose: CTDI volume is 24 mGy. Dose-length product is 1581 mGy*cm Comparison: CT CT AB PEL WITH ORAL CON ONLY on DOS: 03/25/24, ECIDC on DOS: 05/01/22 FINDINGS: Evaluation of the abdomen and pelvis is limited without intravenous contrast. The liver, gallbladder, pancreas, kidneys, adrenal glands, and spleen appear within normal limits. There is no gross evidence of abdominal lymphadenopathy. There is no free fluid or free air. The stomach grossly appears unremarkable. The small and large bowel loops demonstrate normal caliber and distribution. A normal appearing appendix is seen in the right lower quadrant abdomen. The abdominal aorta and IVC appear within normal limits. The bladder appears unremarkable for the degree of distention. Pelvic organ appears within normal allen its. There is no gross evidence of a pelvic mass. There is no free fluid collection. Lung bases are clear. There is no acute osseous abnormality. IMPRESSION: 1. There is no acute process in the abdomen and pelvis. HS:Y
[2024-09-14 11:02] LABS: Glucose 150 mg/dL (74-106)
[2024-09-14 11:20] VITALS: PULSE 81; RESP 17; O2SAT 95
[2024-09-14] MEDS: ONDANSETRON HCL 4 MG/2 ML VIAL IV ONE (11:20)
[2024-09-14] MEDS: SODIUM CHLORIDE 0.9% 1,000 ML IVB ONE (11:20)
[2024-09-14] MEDS: PANTOPRAZOLE 40 MG/10 ML VIAL INJ IV ONE (11:20)
[2024-09-14] MEDS: MORPHINE SULFATE 4 MG/ML SYR/VIAL IV ONE (11:21)
[2024-09-14 12:59] LABS: Urine Bacteria None Seen /hpf (None Seen)
[2024-09-14 13:16] LABS: Urine Blood Negative /uL (Negative); Urine Clarity Clear (Clear); Urine Color Light-Yellow (Yellow); Urine Protein, UAD Negative (Negative); Urine Squamous Epithelial Cell None Seen /hpf (<5); Urine Urobilinogen Normal (Negative)
[2024-09-14 13:18] LABS: Urine WBC < 1 /HPF (0-3)
[2024-09-14] MEDS ORDERED: ONDANSETRON HCL 4 MG/2 ML VIAL IV PRN (15:45)
[2024-09-14] MEDS ORDERED: CYCLOBENZAPRINE HCL 10 MG TAB PO PRN (15:45)
[2024-09-14] MEDS ORDERED: CYCL-611 PO (15:45)
[2024-09-14] MEDS ORDERED: ALPRAZolam 0.25 MG TAB PO PRN (15:45)
--- NOTE | 2024-09-14 16:09 | DVHHP2 ---
History of Present Illness Reason for Visit: Rectal bleeding History of Present Illness Aki King is a 68-year-old male with past medical history of diabetes, hypertension, hyperlipidemia, and prostate cancer, who came in for rectal bleeding. Patient states that he has been having abdominal pain and nausea for the last couple of days. Last night when he had a bowel movement he noticed blood. This morning he felt like he needed to have a bowel movement and when he went it was mostly blood. He states the amount of blood made him nervous so he came to the hospital. Patient states he did have hemorrhoids 2-3 years ago, but they went away on their own and he has not had any problems since. Cardiovascular: HTN, hyperipidemia Endocrine: Diabetes Past Surgical History: Hernia Repair, Other (Prostate, left shoulder) Smoke: No ALCOHOL: none Drugs: None Lives: with Family Domestic Violence: Neg Review of Systems Constitutional: No: Fever, Chills, Sweats, Weakness, Malaise, Other Eyes: No: Pain, Vision change, Conjunctivae inflammation, Eyelid inflammation, Other, Redness ENT: No: Ear pain, Ear discharge, Nose pain, Nose discharge, Nose congestion, Mouth pain, Mouth swelling, Throat pain, Throat swelling, Other Respiratory: No: Cough, Dry, Shortness of breath, SOB with excertion, Wheezing, Hemoptysis, Pleuritic Pain, Sputum, Wheezing, Other Cardiovascular: No: Chest Pain, Palpitations, Orthopnea, Paroxysmal Noc. Dyspnea, Edema, Lt Headedness, Other Gastrointestinal: Nausea, Abdominal Pain; No: Vomiting, Diarrhea, Constipation, Melena, Hematochezia, Other Genitourinary: No Dysuria, No Frequency, No Incontinence, No Hematuria, No Retention, No Other Musculoskeletal: No: other, neck pain, shoulder pain, arm pain, back pain, hand pain, leg pain, foot pain Skin: No: Rash, Lesions, Jaundice, Bruising, Other Neurological: No: Weakness, Numbness, Incoordination, Change in speech, Confusion, Seizures, Other Allergies: Coded Allergies: Sulfa Antibiotics (Verified Allergy, Unknown, 02/03/16) Medications Current Medications Medications Dose Ordered Sig/Fred Route Start Time Stop Time Status Last Admin Dose Admin Acetaminophen/ Hydrocodone Bitart 1 tab Q4HP PRN PO 09/14/24 15:45 UNV Ondansetron HCl 4 mg Q4HP PRN IV 3/31/25 15:45 UNV Acetaminophen 650 mg Q6HP PRN PO 09/14/24 15:45 UNV Alprazolam 0.25 mg BIDPRN PRN PO 09/14/24 15:45 UNV Aspirin 81 mg DAILY PO 09/15/24 10:00 UNV Losartan Potassium 25 mg DAILY PO 09/15/24 10:00 UNV Multivitamins 1 tab DAILY PO 09/15/24 10:00 UNV Patient Own Medication 25 mg DAILY PO 09/15/24 10:00 UNV Patient Own Medication 1 tab DAILY PO 09/15/24 10:00 UNV Patient Own Medication 1 tab DAILY PO 09/15/24 10:00 UNV Patient Own Medication 12.5 mg DAILY PO 09/15/24 10:00 UNV Exam Vital Signs Vital Signs Date Time Temp Pulse Resp B/P (MAP) Pulse Ox O2 Delivery O2 Flow Rate FiO2 09/14/24 15:00 74 16 139/78 (98) 96 09/14/24 11:20 Room Air* 0 21 09/14/24 10:44 98.1 98.1 General Appearance: Alert, Oriented X3, Cooperative, mild distress HEENT: Atraumatic, PERRLA Respiratory: Clear to auscultation, Normal air movement Cardiovascular: Regular rate, Normal S1, Normal S2, No murmurs Abdominal: Normal bowel sounds, Soft, No hepatospenomegaly Extremities: No clubbing, No cyanosis, No edema, Normal pulses Skin: No rashes, No breakdown, No significant lesion Neuro: Normal gait, Normal speech, Strength at 5/5 X4 ext Psych/Mental Status: Mental status NL, Mood NL Labs/Xrays Labs Test 09/14/24 13:35 09/14/24 10:24 09/14/24 10:05 Range/Units Troponin I High Sensitivity 6 </=54 ng/L White Blood Count 8.3 4.4-10.8 10^3/uL Red Blood Count 6.55 H 4.5-5.90 10^6/uL Hemoglobin 19.6 H 13.5-17.5 g/dL Hematocrit 59.0 H 41.0-53.0 % Mean Corpuscular Volume 90.1 80.0-100.0 fL Mean Corpuscular Hemoglobin 29.9 28.0-32.0 pg Mean Corpuscular Hemoglobin Concent 33.2 32.0-36.0 g/dL Red Cell Distribution Width 14.0 11.8-14.3 % Platelet Count 180 140-450 10^3/uL Mean Platelet Volume 8.0 6.9-10.8 fL Neutrophils (%) (Auto) 65.0 37.0-80.0 % Lymphocytes (%) (Auto) 25.9 10.0-50.0 % Monocytes (%) (Auto) 8.0 0.0-12.0 % Eosinophils (%) (Auto) 0.6 0.0-7.0 % Basophils (%) (Auto) 0.5 0.0-2.0 % Neutrophils # (Auto) 5.4 1.6-8.6 10 ^3/uL Lymphocytes # (Auto) 2.1 0.4-5.4 10 ^3/uL Monocytes # (Auto) 0.7 0-1.3 10 ^3/uL Eosinophils # (Auto) 0.1 0-0.8 10 ^3/uL Basophils # (Auto) 0 0-0.2 10 ^3/uL Nucleated Red Blood Cells 0.8 % Sodium Level 139 136-145 mmol/L Potassium Level 3.9 3.5-5.1 mmol/L Chloride Level 105 98-107 mmol/L Carbon Dioxide Level 26 20-31 mmol/L Anion Gap 8 5-15 Blood Urea Nitrogen 15 9-23 mg/dL Creatinine 1.09 0.700-1.30 mg/dL Glomerular Filtration Rate Calc 73 >90 mL/min BUN/Creatinine Ratio 13.8 10.0-20.0 Serum Glucose 150 H 74-106 mg/dL Calcium Level 10.5 H 8.7-10.4 mg/dL Lipase 42 12-53 U/L Urine Color Light-yellow Yellow Urine Clarity Clear Clear Urine pH 6.0 5.0-9.0 Urine Specific [place] 1.030 1.001-1.035 Urine Protein Negative Negative Urine Ketones Negative Negative Urine Blood Negative Negative /uL Urine Nitrite Negative Negative Urine Bilirubin Negative Negative Urine Urobilinogen Normal Negative mg/dL Urine Leukocyte Esterase Negative Negative /uL Urine RBC <1 0 - 3 /hpf Urine Microscopic WBC < 1 0-3 /HPF Urine Squamous Epithelial Cells None seen <5 /hpf Urine Bacteria None seen None Seen /hpf Urine Glucose 4+ H Normal mg/dL CT ABDOMEN AND PELVIS WITHOUT CONTRAST FINDINGS: Evaluation of the abdomen and pelvis is limited without intravenous contrast. The liver, gallbladder, pancreas, kidneys, adrenal glands, and spleen appear within normal limits. There is no gross evidence of abdominal lymphadenopathy. There is no free fluid or free air. The stomach grossly appears unremarkable. The small and large bowel loops demonstrate normal caliber and distribution. A normal appearing appendix is seen in the right lower quadrant abdomen. The abdominal aorta and IVC appear within normal limits. The bladder appears unremarkable for the degree of distention. Pelvic organ appears within normal limits. There is no gross evidence of a pelvic mass. There is no free fluid collection. Lung bases are clear. There is no acute osseous abnormality. IMPRESSION: 1. There is no acute process in the abdomen and pelvis. Assessment/Plan Assessment/Plan Assessment: GI bleed, Dehydration, Diabetes, Hypertension, Hyperlipidemia, Plan: Admit to Med-Surg, GI consult, IV hydration, Stool for occult blood, Protonix IV BID, Home medications reconciled, Plan discussed with: Patient My Orders Orders - LUCRECIA FISHER Procedure Category Date Status Time Admit ADMIT 09/14/24 Transmitted 15:38 Code Status CODE 09/14/24 Transmitted 15:38 Hydrocodone-Acet PHA 09/14/24 Logged 5/325mg Tab ([place] 15:45 Ondansetron Hcl PHA 09/14/24 Logged (Zofran) 15:45 Complete Blood Count LAB 09/15/24 Verified 04:00 Comprehensive LAB 09/15/24 Verified Metabolic Panel 04:00 Condition: Serious LOLI 09/14/24 In Process 15:38 Acetaminophen Tablet PHA 09/14/24 Logged (Tylenol Tablet) 15:45 Clear Liq Diet DIET 09/14/24 Transmitted Dinner Alprazolam Tablet PHA 09/14/24 Logged (Xanax Tablet) 15:45 Aspirin Enteric PHA 09/15/24 Logged Coated Tablet 10:00 Losartan Tablet PHA 09/15/24 Logged (Cozaar Tablet) 10:00 Multiple Vitamin PHA 09/15/24 Logged Tablet (Mvi Tab) 10:00 (Nf) Empagliflozin PHA 09/15/24 Logged (Jardiance) 10:00 (NF) PHA 09/15/24 Logged Ezetimibe-Simvastatin 10:00 (Nf) Fenofibrate PHA 09/15/24 Logged 10:00 (NF) PHA 09/15/24 Logged Hydrochlorothiazide 10:00 * Gi [facility] [employer]ice CONS 09/14/24 Transmitted 15:38 Cyclobenzaprine PHA 09/14/24 Transmitted Tablet (Flexeril 15:45 Date of Service: Sep 14, 2024 Billing Provider: LUCRECIA FISHER Common Visit Codes: [id number] INP/OBS CARE (MOD) LUCRECIA FISHER Sep 14, 2024 16:09
[2024-09-14] MEDS ORDERED: DEXTROSE (50%) 50ML SYRG IV PRN (16:15)
[2024-09-14 16:31] VITALS: BP 147/75; PULSE 69; PULSE 80; RESP 16; RESP 20; TEMP 98.4; O2SAT 93; O2SAT 96
[2024-09-14] MEDS ORDERED: BACL10TA PO (16:39)
[2024-09-14] MEDS: InsuLIN REG 1unit/0.01ml Soln (100units/ml) SC SCH ×2 (17:00→21:57)
[2024-09-14] MEDS: SODIUM CHLORIDE 0.9% 1,000 ML IV ONE (17:24)
[2024-09-14] MEDS: ACCU-CHEK COMFORT CURVE STRIP VI SCH (17:24)
[2024-09-14 18:11] VITALS: BP 136/90; PULSE 80; TEMP 98.4; O2SAT 93
[2024-09-14] MEDS: ACETAMINOPHEN 325 MG TAB PO PRN (18:29)
[2024-09-14 21:09] VITALS: BP 118/70; PULSE 70; RESP 20; TEMP 98; O2SAT 91
[2024-09-14] MEDS: PANTOPRAZOLE 40 MG/10 ML VIAL INJ IV SCH (21:19)
--- NOTE | 2024-09-14 21:46 | DVHINCON2 ---
Date of service: Sep 14, 2024 Referring Physician Wisam Oquendo Reason for Consultation Rectal bleeding History of Present Illness Aki King is a 68-year-old male with past medical history of diabetes, hypertension, hyperlipidemia, and prostate cancer, who came in for rectal bleeding. Patient states that he has been having abdominal pain and nausea for the last couple of days. Last night when he had a bowel movement he noticed blood. This morning he felt like he needed to have a bowel movement and when he went it was mostly blood. He states the amount of blood made him nervous so he came to the hospital. Patient states he did have hemorrhoids 2-3 years ago, but they went away on their own and he has not had any problems since. Past Medical History Cardiovascular: HTN, hyperipidemia Endocrine: Diabetes Past Surgical History Past Surgical History: Hernia Repair, Other (Prostate, left shoulder) Family History: Cerebrovascular accident (CVA) G8 MOTHER, FH: coronary artery bypass surgery G8 FATHER, Allergies: Coded Allergies: Sulfa Antibiotics (Verified Allergy, Unknown, 02/03/16) Home Meds Reported Medications Baclofen (Baclofen) 10 Mg Tab, 10 MG PO TID, TAB 09/14/24 Cyclobenzaprine HCl (Cyclobenzaprine Hydrochlo) 10 Mg Tab, 1 TAB PO TIDPRN PRN 09/14/24 Dupilumab (Dupixent) 300 Mg/2 Ml Inj, 300 MG SC 2XW, INJ 07/28/21 Tadalafil (Cialis) 5 Mg Tab, 1 TAB PO DAILY, #30 TAB 5 Refills 07/28/21 Alprazolam (Xanax) 0.25 Mg Tb, 1 TAB PO BIDPRN PRN for ANXIETY, #30 TAB 07/28/21 Empagliflozin (Jardiance) 25 Mg Tab, 25 MG PO DAILY, TAB 07/28/21 Semaglutide (Ozempic) 2 Mg/1.5 Ml Inj, 1 MG SC QWEEKLY, INJ 07/28/21 Fenofibrate (FENOFIBRATE) 145 Mg Tab, 1 TAB PO DAILY, #30 TAB 5 Refills 07/28/21 Tramadol Hcl (Tramadol Hcl) 50 Mg Tab, 100 MG PO BIDPRN PRN for PAIN SCALE 7 THRU 10, MG 07/28/21 Losartan Potassium (Losartan Potassium) 25 Mg Tab, 25 MG PO DAILY for 30 Days, MG 07/28/21 [place]-3 Fatty Acids (FISH OIL) 1,000 Mg Cap, 1000 MG PO DAILY, CAP 07/28/21 Multiple Vitamin (Mvi Tab) 1 Tab Tb, 1 TAB PO DAILY, TAB 07/28/21 Hydrochlorothiazide (Hydrochlorothiazide) 12.5 Mg Cap, 12.5 MG PO DAILY for 30 Days, MG 07/28/21 Aspirin (Aspir-Low) 81 Mg Tab, 81 MG PO DAILY for 30 Days, MG 07/28/21 Ezetimibe-Simvastatin (Vytorin) 1 Tab Tab, 1 TAB PO DAILY, #30 TAB 5 Refills 07/28/21 Discontinued Reported Medications Carisoprodol (Soma) 350 Mg Tab, 350 MG PO, TAB 07/28/21 Current Medications Current Medications Medications (Trade) Dose Ordered Sig/Fred Route PRN Reason Start Time Stop Time Status Last Admin Acetaminophen/ Hydrocodone Bitart ([place] 5/325MG Tab) 1 tab Q4HP PRN PO MODERATE PAIN (4-6 PAIN SCALE) 09/14/24 15:45 Ondansetron HCl (Zofran) 4 mg Q4HP PRN IV NAUSEA / VOMITING 09/14/24 15:45 Acetaminophen (Tylenol Tablet) 650 mg Q6HP PRN PO PAIN SCALE 1-3 OR TEMP>100.4 09/14/24 15:45 09/14/24 18:29 Alprazolam (Xanax Tablet) 0.25 mg BIDPRN PRN PO ANXIETY 09/14/24 15:45 Aspirin (Ecotrin Enteric Coated Tablet) 81 mg DAILY PO 09/15/24 10:00 Losartan Potassium (Cozaar Tablet) 25 mg DAILY PO 09/15/24 10:00 Multivitamins (Mvi Tab) 1 tab DAILY PO 09/15/24 10:00 Patient Own Medication 25 mg DAILY PO 09/15/24 10:00 Patient Own Medication 1 tab DAILY PO 09/15/24 10:00 Patient Own Medication 1 tab DAILY PO 09/15/24 10:00 Hydrochlorothiazide (hydroCHLOROthiazide TABLET) 12.5 mg DAILY PO 09/15/24 10:00 Cyclobenzaprine HCl (Flexeril Tablet) 10 mg TIDPRN PRN PO FOR MUSCLE SPASM 09/14/24 15:45 Pantoprazole Sodium (Protonix) 40 mg BID IV 09/14/24 22:00 09/14/24 21:19 Diagnostic Test (Pha) (Accu-Chek Comfort Curve T) 1 strip ACHS 09/14/24 17:00 09/14/24 21:19 Insulin Human Regular (InsuLIN R) HS SC 09/14/24 22:00 Insulin Human Regular (InsuLIN R) AC SC 09/14/24 17:00 Dextrose 50 ml UD PRN IV Blood Sugar LESS THAN 60 09/14/24 16:15 Vital Signs Vital Signs Date Time Temp Pulse Resp B/P (MAP) Pulse Ox O2 Delivery O2 Flow Rate FiO2 09/14/24 21:09 98.0 70 20 118/70 (86) 91 98.0 09/14/24 16:31 Room Air* 0 21 Physical Exam Hemodynamically stable Full examination deferred Labs/Diagnostic Data Labs Test 09/14/24 20:55 09/14/24 13:35 09/14/24 10:24 09/14/24 10:05 Range/Units POC Glucose 116 H 70-106 mg/dl Troponin I High Sensitivity 6 </=54 ng/L White Blood Count 8.3 4.4-10.8 10^3/uL Red Blood Count 6.55 H 4.5-5.90 10^6/uL Hemoglobin 19.6 H 13.5-17.5 g/dL Hematocrit 59.0 H 41.0-53.0 % Mean Corpuscular Volume 90.1 80.0-100.0 fL Mean Corpuscular Hemoglobin 29.9 28.0-32.0 pg Mean Corpuscular Hemoglobin Concent 33.2 32.0-36.0 g/dL Red Cell Distribution Width 14.0 11.8-14.3 % Platelet Count 180 140-450 10^3/uL Mean Platelet Volume 8.0 6.9-10.8 fL Neutrophils (%) (Auto) 65.0 37.0-80.0 % Lymphocytes (%) (Auto) 25.9 10.0-50.0 % Monocytes (%) (Auto) 8.0 0.0-12.0 % Eosinophils (%) (Auto) 0.6 0.0-7.0 % Basophils (%) (Auto) 0.5 0.0-2.0 % Neutrophils # (Auto) 5.4 1.6-8.6 10 ^3/uL Lymphocytes # (Auto) 2.1 0.4-5.4 10 ^3/uL Monocytes # (Auto) 0.7 0-1.3 10 ^3/uL Eosinophils # (Auto) 0.1 0-0.8 10 ^3/uL Basophils # (Auto) 0 0-0.2 10 ^3/uL Nucleated Red Blood Cells 0.8 % Sodium Level 139 136-145 mmol/L Potassium Level 3.9 3.5-5.1 mmol/L Chloride Level 105 98-107 mmol/L Carbon Dioxide Level 26 20-31 mmol/L Anion Gap 8 5-15 Blood Urea Nitrogen 15 9-23 mg/dL Creatinine 1.09 0.700-1.30 mg/dL Glomerular Filtration Rate Calc 73 >90 mL/min BUN/Creatinine Ratio 13.8 10.0-20.0 Serum Glucose 150 H 74-106 mg/dL Calcium Level 10.5 H 8.7-10.4 mg/dL Lipase 42 12-53 U/L Urine Color Light-yellow Yellow Urine Clarity Clear Clear Urine pH 6.0 5.0-9.0 Urine Specific [place] 1.030 1.001-1.035 Urine Protein Negative Negative Urine Ketones Negative Negative Urine Blood Negative Negative /uL Urine Nitrite Negative Negative Urine Bilirubin Negative Negative Urine Urobilinogen Normal Negative mg/dL Urine Leukocyte Esterase Negative Negative /uL Urine RBC <1 0 - 3 /hpf Urine Microscopic WBC < 1 0-3 /HPF Urine Squamous Epithelial Cells None seen <5 /hpf Urine Bacteria None seen None Seen /hpf Urine Glucose 4+ H Normal mg/dL CT Abd Pelvis IMPRESSION: 1. There is no acute process in the abdomen and pelvis. Problems(with codes): (1) Prostate cancer (2) GI bleed (3) Polycythemia Plan/Recommendation Assessment plan Rectal bleed possibly related to radiation proctitis I will discuss with the patient if he has had a recent colonoscopy Clear liquid diet Monitor labs I will follow up patient with you Plan discussed with: Other (Azra) STELLA BLOUNT MD Sep 14, 2024 21:46
[2024-09-15] VITALS (8 sets, daily range): BP systolic 101–145; BP diastolic 71–89; PULSE 62–73; RESP 18–20; TEMP 97.5–98.6; O2SAT 93–98
[2024-09-15] MEDS: HYDROcodone-ACET 5/325MG TAB PO PRN (03:58)
[2024-09-15 05:53] LABS: Basophils # (auto) 0 10 ^3/uL (0-0.2); Eosinophils # (auto) 0.1 10 ^3/uL (0-0.8); Eosinophils % (auto) 1.5 % (0.0-7.0); Monocytes # (auto) 0.6 10 ^3/uL (0-1.3); Neutrophils # (auto) 3.1 10 ^3/uL (1.6-8.6); Nucleated Red Blood Cells % 0.4 %; Platelet Count (auto) 155 10^3/uL (140-450)
[2024-09-15 05:55] LABS: Basophils % (auto) 0.6 % (0.0-2.0); Hematocrit 53.9 % (41.0-53.0); Hemoglobin 18.3 g/dL (13.5-17.5); Lymphocytes # (auto) 1.9 10 ^3/uL (0.4-5.4); Lymphocytes % (auto) 33.8 % (10.0-50.0); Mean Corpuscular Hemoglobin 30.4 pg (28.0-32.0); Mean Corpuscular Hgb Conc. 33.9 g/dL (32.0-36.0); Mean Corpuscular Volume 89.6 fL (80.0-100.0); Neutrophils % (auto) 54.1 % (37.0-80.0); Red Blood Cells 6.01 10^6/uL (4.5-5.90); Red Cell Distribution Width 13.7 % (11.8-14.3); White Blood Cell 5.7 10^3/uL (4.4-10.8)
[2024-09-15 06:03] LABS: Alanine Aminotransferase 30 U/L (7-40); Albumin 4.4 g/dL (3.2-4.8); Alkaline Phosphatase 41 U/L (46-116); Anion Gap 7 (5-15); Aspartate Aminotransferase 14 U/L (13-40); BUN/Creatinine Ratio 14.3 (10.0-20.0); Bilirubin, Total 1.3 mg/dL (0.2-1.0); Blood Urea Nitrogen 13 mg/dL (9-23); Calcium 9.6 mg/dL (8.7-10.4); Carbon Dioxide 29 mmol/L (20-31); Chloride 102 mmol/L (98-107); Glucose 112 mg/dL (74-106); Potassium 3.9 mmol/L (3.5-5.1); Sodium 138 mmol/L (136-145); Total Protein 6.5 g/dL (5.7-8.2)
[2024-09-15 08:47] LABS: INR 1.02 (0.9-1.15); Prothrombin Time 10.8 sec (9.3-11.8)
[2024-09-15] MEDS: LOSARTAN POTASSIUM 25 MG TAB PO SCH (09:34)
[2024-09-15] MEDS: MULTIPLE VITAMIN TAB PO SCH (09:34)
[2024-09-15] MEDS: ASPirin-EC 81 mg tab PO SCH (09:34)
[2024-09-15] MEDS: hydroCHLOROthiazide 25 MG TAB PO SCH (09:35)
[2024-09-15] MEDS: Fenofibrate 145MG PO SCH (09:44)
[2024-09-15] MEDS: EZETIMIBE SIMVASTATIN PO SCH (09:44)
[2024-09-15] MEDS: Empagliflozin (Jardiance) 25 MG TABLET PO SCH (09:44)
--- NOTE | 2024-09-15 15:23 | DVHPN2 ---
Progress Note - Dictate Date Seen: Sep 15, 2024 Medical Necessity Reason Pt with a Central, PICC or Fol: No Subjective PT WITH ABD PAIN HTN HYPERLIPIDEMIA DIABETES NEPHTOPATHY VACULOPATHY HX OF PROSTATE CA NOW WITH RECTAL BLEED/ HEMORRHOIDAL BLEED VS CA VS PROCTATIS vital signs Vital Sign Date Time Temp Pulse Resp B/P (MAP) Pulse Ox O2 Delivery O2 Flow Rate FiO2 09/15/24 13:00 98.2 62 18 122/80 (94) 98 98.2 09/15/24 08:00 Room Air* 0 21 Total Intake and Output 09/14/24 09/14/24 09/15/24 15:00 23:00 07:00 Intake Total 1000 ml 390 ml 700 ml Balance 1000 ml 390 ml 700 ml medications Current Medications Medications Dose Ordered Sig/Fred Route Start Time Stop Time Status Last Admin Dose Admin Acetaminophen/ Hydrocodone Bitart 1 tab Q4HP PRN PO 09/14/24 15:45 09/15/24 03:58 1 TAB Ondansetron HCl 4 mg Q4HP PRN IV 09/14/24 15:45 Acetaminophen 650 mg Q6HP PRN PO 09/14/24 15:45 09/14/24 18:29 650 MG Alprazolam 0.25 mg BIDPRN PRN PO 09/14/24 15:45 Aspirin 81 mg DAILY PO 09/15/24 10:00 09/15/24 09:34 81 MG Losartan Potassium 25 mg DAILY PO 09/15/24 10:00 09/15/24 09:34 25 MG Multivitamins 1 tab DAILY PO 09/15/24 10:00 09/15/24 09:34 1 TAB Patient Own Medication 25 mg DAILY PO 09/15/24 10:00 Patient Own Medication 1 tab DAILY PO 09/15/24 10:00 Patient Own Medication 1 tab DAILY PO 09/15/24 10:00 Hydrochlorothiazide 12.5 mg DAILY PO 09/15/24 10:00 09/15/24 09:35 12.5 MG Cyclobenzaprine HCl 10 mg TIDPRN PRN PO 09/14/24 15:45 Pantoprazole Sodium 40 mg BID IV 09/14/24 22:00 09/15/24 09:32 40 MG Diagnostic Test (Pha) 1 strip ACHS 09/14/24 17:00 09/15/24 11:30 1 STRIP Insulin Human Regular HS SC 09/14/24 22:00 Insulin Human Regular AC SC 09/14/24 17:00 Dextrose 50 ml UD PRN IV 09/14/24 16:15 laboratory and microbiology Laboratory Tests 09/15/24 04:37 Test 09/15/24 04:37 Range/Units Serum Glucose 112 H 74-106 mg/dL Problem List ABD PAIN HTN HYPERLIPIDEMIA DIABETES NEPHTOPATHY VACULOPATHY HX OF PROSTATE CA NOW WITH RECTAL BLEED/ HEMORRHOIDAL BLEED VS CA VS PROCTATIS Assessment/Plan SERIAL CBC HOLD ALL ANT PLATELET AND ANTICOAGULANTS COLONOSCOPY Plan discussed with: Patient LUDIN GARDUNO MD Sep 15, 2024 15:23
--- NOTE | 2024-09-15 16:46 | DVHPNRES ---
Progress Note Date Seen: Sep 15, 2024 Resident Creating Document: ALEJANDRO PEREZ RESIDENT Medical Necessity Reason Pt with a Central, PICC or Fol: No Subjective Review of Systems 68-year-old male patient with past medical history of type 2 diabetes, hypertension, hyperlipidemia and prostate cancer, he said he had a prostatectomy but he never had radiation therapy or chemotherapy in the past. He presented to the emergency department with a chief complaint of rectal bleeding associated with the abdominal pain and nausea for the last couple of days. He describes rectal bleeding as red bright, after a rectal examination there were no presence of external hemorrhoids Or active bleeding. Per patient he had a similar episodes of rectal bleeding, but related with the hemorrhoids 2-3 years ago that went away on their own and he did not have any problems since then. Patient denies history of recent weight loss Patient last colonoscopy was performed 3 years ago. The found some polyps.medical records were requested Hemoglobin was found to be on 19.6 and 18.3 today most likely related with secondary polycythemia due to history of obstructive sleep apnea. GI on board. Review of systems Constitutional: No: Fever, Chills, Sweats, Weakness, Malaise, Other Eyes: No: Pain, Vision change, Conjunctivae inflammation, Eyelid inflammation, Other, Redness ENT: No: Ear pain, Ear discharge, Nose pain, Nose discharge, Nose congestion, Mouth pain, Mouth swelling, Throat pain, Throat swelling, Other Respiratory: No Wheezing, Hemoptysis, Pleuritic Pain, Sputum, Wheezing, Other Cardiovascular: No: Chest Pain, Palpitations, Orthopnea, Paroxysmal Noc. Dyspnea, Edema, Lt Headedness, Other Gastrointestinal: No: Nausea, Vomiting, Abdominal Pain, Diarrhea, Constipation, Melena, Hematochezia, Other Musculoskeletal: No: other, neck pain, shoulder pain, arm pain, back pain, hand pain, leg pain, foot pain Neurological:; No: Weakness, Numbness, Incoordination, Change in speech, Confusion, Seizures Patient reports: No new complaints Changes from previous H/P or p: No Changes Objective vital signs Vital Sign Date Time Temp Pulse Resp B/P (MAP) Pulse Ox O2 Delivery O2 Flow Rate FiO2 09/15/24 13:00 98.2 62 18 122/80 (94) 98 98.2 09/15/24 08:00 Room Air* 0 21 Total Intake and Output 09/14/24 09/14/24 09/15/24 15:00 23:00 07:00 Intake Total 1000 ml 390 ml 700 ml Balance 1000 ml 390 ml 700 ml medications Current Medications Medications Dose Ordered Sig/Fred Route Start Time Stop Time Status Last Admin Dose Admin Acetaminophen/ Hydrocodone Bitart 1 tab Q4HP PRN PO 09/14/24 15:45 09/15/24 03:58 1 TAB Ondansetron HCl 4 mg Q4HP PRN IV 09/14/24 15:45 Acetaminophen 650 mg Q6HP PRN PO 09/14/24 15:45 09/14/24 18:29 650 MG Alprazolam 0.25 mg BIDPRN PRN PO 09/14/24 15:45 Aspirin 81 mg DAILY PO 09/15/24 10:00 09/15/24 09:34 81 MG Losartan Potassium 25 mg DAILY PO 09/15/24 10:00 09/15/24 09:34 25 MG Multivitamins 1 tab DAILY PO 09/15/24 10:00 09/15/24 09:34 1 TAB Patient Own Medication 25 mg DAILY PO 09/15/24 10:00 Patient Own Medication 1 tab DAILY PO 09/15/24 10:00 Patient Own Medication 1 tab DAILY PO 09/15/24 10:00 Hydrochlorothiazide 12.5 mg DAILY PO 09/15/24 10:00 09/15/24 09:35 12.5 MG Cyclobenzaprine HCl 10 mg TIDPRN PRN PO 09/14/24 15:45 Pantoprazole Sodium 40 mg BID IV 09/14/24 22:00 09/15/24 09:32 40 MG Diagnostic Test (Pha) 1 strip ACHS 09/14/24 17:00 09/15/24 11:30 1 STRIP Insulin Human Regular HS SC 09/14/24 22:00 Insulin Human Regular AC SC 09/14/24 17:00 Dextrose 50 ml UD PRN IV 09/14/24 16:15 Examination Examination General Appearance: Alert, Oriented X3, Cooperative, No acute distress Respiratory: Clear to auscultation, Normal air movement Cardiovascular: Regular rate, Normal S1, Normal S2 Abdominal: Normal bowel sounds Extremities: No cyanosis, No edema, Normal pulses, No tenderness/swelling GI: Rectal exam unremarkable Skin: No rashes, No breakdown Neuro: Normal gait, Normal speech, Strength at 5/5 X4 ext, Normal tone, Sensation intact, Cranial nerves 3-12 NL, Reflexes 2+ Psych/Mental Status: Mental status NL, Mood NL laboratory and microbiology Laboratory Tests 09/15/24 04:37 Test 09/15/24 04:37 Range/Units Serum Glucose 112 H 74-106 mg/dL Problem List/Assessment/Plan Problem List/Assessment/Plan Hematochezia due to Lower GI bleed likely due to internal hemorrhoids/? Proctitis Questionable melena due to upper GI bleed? -patient denies history of radiation -patient reports process of streaks of black stool -gastroenterology on board -monitor H&H -Protonix IV b.i.d. -stool occult blood positive Type 2 obesity Lifestyle modification counseling and dietary habits counseling Type 2 diabetes, controlled -sliding scale insulin -monitor glucose, Accu-Cheks History of prostate cancer -surgical management with prostatectomy Dyslipidemia Monitor Primary Hypertension Resume home medications Case discussed with Dr. Garcia Goals of care discussed with the patient for 31 minutes Code status: Full code Plan discussed with: Patient ALEJANDRO PEREZ RESIDENT Sep 15, 2024 16:46
--- NOTE | 2024-09-15 18:11 | DVHPN2 ---
Progress Note - Dictate Date Seen: Sep 15, 2024 Medical Necessity Reason Pt with a Central, PICC or Fol: No Subjective No new complaints Patient seen at bedside resting comfortably He is tolerating clear liquid diet He has not had any further since admission Patient stated he never received any radiation for his prostate cancer He had a prostatectomy in 2018 Patient's last colonoscopy was a few years ago and he may have had a few polyps and he would like to get a repeat colonoscopy vital signs Vital Sign Date Time Temp Pulse Resp B/P (MAP) Pulse Ox O2 Delivery O2 Flow Rate FiO2 09/15/24 17:00 98.6 71 18 129/89 (102) 93 98.6 09/15/24 08:00 Room Air* 0 21 Total Intake and Output 09/14/24 09/14/24 09/15/24 15:00 23:00 07:00 Intake Total 1000 ml 390 ml 700 ml Balance 1000 ml 390 ml 700 ml medications Current Medications Medications Dose Ordered Sig/Fred Route Start Time Stop Time Status Last Admin Dose Admin Acetaminophen/ Hydrocodone Bitart 1 tab Q4HP PRN PO 09/14/24 15:45 09/15/24 03:58 1 TAB Ondansetron HCl 4 mg Q4HP PRN IV 09/14/24 15:45 Acetaminophen 650 mg Q6HP PRN PO 09/14/24 15:45 09/14/24 18:29 650 MG Alprazolam 0.25 mg BIDPRN PRN PO 09/14/24 15:45 Aspirin 81 mg DAILY PO 09/15/24 10:00 09/15/24 09:34 81 MG Losartan Potassium 25 mg DAILY PO 09/15/24 10:00 09/15/24 09:34 25 MG Multivitamins 1 tab DAILY PO 09/15/24 10:00 09/15/24 09:34 1 TAB Patient Own Medication 25 mg DAILY PO 09/15/24 10:00 Patient Own Medication 1 tab DAILY PO 09/15/24 10:00 Patient Own Medication 1 tab DAILY PO 09/15/24 10:00 Hydrochlorothiazide 12.5 mg DAILY PO 09/15/24 10:00 09/15/24 09:35 12.5 MG Cyclobenzaprine HCl 10 mg TIDPRN PRN PO 09/14/24 15:45 Pantoprazole Sodium 40 mg BID IV 09/14/24 22:00 09/15/24 09:32 40 MG Diagnostic Test (Pha) 1 strip ACHS 09/14/24 17:00 09/15/24 11:30 1 STRIP Insulin Human Regular HS SC 09/14/24 22:00 Insulin Human Regular AC SC 09/14/24 17:00 Dextrose 50 ml UD PRN IV 09/14/24 16:15 objective General Appearance: Alert, Oriented X3, Cooperative, No acute distress Respiratory: Clear to auscultation, Normal air movement Cardiovascular: Regular rate, Normal S1, Normal S2 Abdominal: Normal bowel sounds Extremities: No cyanosis, No edema, Normal pulses, No tenderness/swelling GI: Rectal exam unremarkable Skin: No rashes, No breakdown Neuro: Normal gait, Normal speech, Strength at 5/5 X4 ext, Normal tone, Sensation intact, Cranial nerves 3-12 NL, Reflexes 2+ Psych/Mental Status: Mental status NL, Mood NL laboratory and microbiology Laboratory Tests 09/15/24 04:37 Test 09/15/24 04:37 Range/Units Serum Glucose 112 H 74-106 mg/dL Problems(with codes): (1) Polycythemia (2) GI bleed (3) Prostate cancer Prognosis PLAN Continue clear liquid diet today Patient will get bowel prep tonight I will schedule him for a colonoscopy on 09/16/2024 Risks and alternatives were explained to the patient Plan discussed with: Patient STELLA BLOUNT MD Sep 15, 2024 18:11
[2024-09-15] MEDS: GOLYTELY 4L KIT PO ONE (18:41)
[2024-09-16] VITALS (10 sets, daily range): BP systolic 108–145; BP diastolic 62–98; PULSE 66–80; RESP 16–20; TEMP 97.5–98.6; O2SAT 93–98
[2024-09-16] MEDS: GOLYTELY 4L KIT PO ONE (06:00)
[2024-09-16] MEDS: MAGNESIUM CITRATE SOLUTION 300 ML BTL PO ONE (06:00)
[2024-09-16 06:34] LABS: Basophils # (auto) 0 10 ^3/uL (0-0.2); Eosinophils # (auto) 0.1 10 ^3/uL (0-0.8); White Blood Cell 7.8 10^3/uL (4.4-10.8)
[2024-09-16 06:39] LABS: Basophils % (auto) 0.6 % (0.0-2.0); Eosinophils % (auto) 1.3 % (0.0-7.0); Hematocrit 55.7 % (41.0-53.0); Hemoglobin 19.7 g/dL (13.5-17.5); Lymphocytes # (auto) 1.9 10 ^3/uL (0.4-5.4); Lymphocytes % (auto) 24.4 % (10.0-50.0); Mean Corpuscular Hemoglobin 31.7 pg (28.0-32.0); Mean Corpuscular Hgb Conc. 35.3 g/dL (32.0-36.0); Mean Corpuscular Volume 89.9 fL (80.0-100.0); Monocytes # (auto) 0.8 10 ^3/uL (0-1.3); Monocytes % (auto) 10.3 % (0.0-12.0); Neutrophils % (auto) 63.4 % (37.0-80.0); Nucleated Red Blood Cells % 0.1 %; Platelet Count (auto) 178 10^3/uL (140-450); Red Cell Distribution Width 13.6 % (11.8-14.3)
[2024-09-16 06:42] LABS: Anion Gap 11 (5-15); Carbon Dioxide 29 mmol/L (20-31); Chloride 98 mmol/L (98-107); Potassium 3.9 mmol/L (3.5-5.1); Sodium 138 mmol/L (136-145)
[2024-09-16 06:43] LABS: Calcium 10.4 mg/dL (8.7-10.4)
[2024-09-16 06:48] LABS: BUN/Creatinine Ratio 10.1 (10.0-20.0); Blood Urea Nitrogen 10 mg/dL (9-23)
[2024-09-16 06:49] LABS: Glucose 126 mg/dL (74-106)
--- NOTE | 2024-09-16 08:22 | DVHPN2 ---
Progress Note - Dictate Date Seen: Sep 16, 2024 Medical Necessity Reason Pt with a Central, PICC or Fol: No Subjective PT WITH ABD PAIN HTN HYPERLIPIDEMIA DIABETES NEPHTOPATHY VACULOPATHY HX OF PROSTATE CA NOW WITH RECTAL BLEED/ HEMORRHOIDAL BLEED VS CA VS PROCTATIS vital signs Vital Sign Date Time Temp Pulse Resp B/P (MAP) Pulse Ox O2 Delivery O2 Flow Rate FiO2 09/16/24 05:00 98.2 80 20 108/81 (90) 95 98.2 09/15/24 20:00 Room Air* 0 21 Total Intake and Output 09/15/24 09/15/24 09/16/24 15:00 23:00 07:00 Intake Total 1200 ml 1440 ml 1340 ml Balance 1200 ml 1440 ml 1340 ml medications Current Medications Medications Dose Ordered Sig/Fred Route Start Time Stop Time Status Last Admin Dose Admin Acetaminophen/ Hydrocodone Bitart 1 tab Q4HP PRN PO 09/14/24 15:45 09/15/24 03:58 1 TAB Ondansetron HCl 4 mg Q4HP PRN IV 09/14/24 15:45 Acetaminophen 650 mg Q6HP PRN PO 09/14/24 15:45 09/16/24 05:17 650 MG Alprazolam 0.25 mg BIDPRN PRN PO 09/14/24 15:45 Aspirin 81 mg DAILY PO 09/15/24 10:00 09/15/24 09:34 81 MG Losartan Potassium 25 mg DAILY PO 09/15/24 10:00 09/15/24 09:34 25 MG Multivitamins 1 tab DAILY PO 09/15/24 10:00 09/15/24 09:34 1 TAB Patient Own Medication 25 mg DAILY PO 09/15/24 10:00 Patient Own Medication 1 tab DAILY PO 09/15/24 10:00 Patient Own Medication 1 tab DAILY PO 09/15/24 10:00 Hydrochlorothiazide 12.5 mg DAILY PO 09/15/24 10:00 09/15/24 09:35 12.5 MG Cyclobenzaprine HCl 10 mg TIDPRN PRN PO 09/14/24 15:45 Pantoprazole Sodium 40 mg BID IV 09/14/24 22:00 09/15/24 21:30 40 MG Diagnostic Test (Pha) 1 strip ACHS 09/14/24 17:00 09/16/24 06:30 1 STRIP Insulin Human Regular HS SC 09/14/24 22:00 Insulin Human Regular AC SC 09/14/24 17:00 Dextrose 50 ml UD PRN IV 09/14/24 16:15 laboratory and microbiology Laboratory Tests 09/16/24 04:39 Test 09/16/24 04:39 Range/Units Serum Glucose 126 H 74-106 mg/dL Problem List ABD PAIN HTN HYPERLIPIDEMIA DIABETES NEPHTOPATHY VACULOPATHY HX OF PROSTATE CA NOW WITH RECTAL BLEED/ HEMORRHOIDAL BLEED VS CA VS PROCTATIS Assessment/Plan SERIAL CBC HOLD ALL ANT PLATELET AND ANTICOAGULANTS COLONOSCOPY Plan discussed with: Patient LUDIN GARDUNO MD Sep 16, 2024 08:22
[2024-09-16] MEDS: MORPHINE SULFATE INJ 2 MG/ml SYRG IV PRN (11:32)
--- NOTE | 2024-09-16 12:32 | ECG ---
[facility] Test Date: 2024-09-14 Test Time: 10:15:55 Pat Name: KAREN CABELLO Department: ER Room: 0212 B Gender: M [employer]: GP : [id number] Requested By: MCKENNA MONTANEZ Order Number: [id number] Reading MD: Jacob Flaherty Measurements Intervals [place] Rate: 81 P: 36 MA: 170 QRS: 264 QRSD: 108 T: 35 QT: 380 QTc: 441 Interpretive Statements Sinus rhythm Atrial premature complex Left anterior fascicular block Consider right ventricular hypertrophy Borderline ST depression, lateral leads Baseline wander in lead(s) II,III,aVL,aVF,V1,V3,V4,V5,V6 Electronically Signed On 09-16-2024 22:06:52 PDT by Jacob Flaherty Please click the below link to view image of tracing.
[2024-09-16] MEDS ORDERED: SODIUM CHLORIDE LOCK 10 ML ONE (12:56)
[2024-09-16] MEDS: MIDAZOLAM HCL 5 MG/ML-1ML VIAL ONE (12:58)
[2024-09-16] MEDS: fentaNYL CITRATE 100 MCG/2 ML VL ONE (12:58)
[2024-09-16] MEDS: diphenhdrAMINE HCL 50 MG/1 ML VL ONE (12:58)
--- NOTE | 2024-09-16 13:23 | DVHOP2 ---
Operative Report DATE OF OPERATION: 09/16/24 PROCEDURE: Colonoscopy with cold biopsy polypectomy. PREOPERATIVE INDICATION: The patient is a 68 -year-old male undergoing colonoscopy for evaluation of rectal bleeding and surveillance for personal history of colon polyps POSTOPERATIVE DIAGNOSES: 1. Patient had a 1-2 mm benign-appearing distal transverse colon polyp that was seen and removed completely via cold biopsy forceps 2. Patient had one to 2+ slightly engorged internal hemorrhoids; mild scattered diverticular disease 3. Otherwise essentially completely normal colonoscopy examination of the cecum with no fresh or old blood and no colitis PROCEDURE PERFORMED BY: tSella Palomino M.D. SCOPE: Olympus videocolonoscope. ASA CLASS: 3. PREOPERATIVE MEDICATIONS: Versed 2 mg, Fentanyl 50 mcg, Benadryl 50 mg PROCEDURE IN DETAIL: After obtaining an informed consent, the patient was placed on left lateral decubitus position. He was then sedated with the above medications. A rectal examination was performed that was normal. The colonoscope was then passed through the anus into the rectosigmoid and through the descending, transverse, and ascending colon up to the cecum with visualization of the appendiceal orifice, base of the cecum and the ileocecal valve. The colonoscope was then withdrawn. No masses or colitis was noted. There was and occasional scattered diverticular disease In the distal transverse colon there was a 2 mm benign-appearing polyp that was seen and removed completely via cold biopsy forceps On retroflexion and straight on view he had one to 2+ slightly engorged internal hemorrhoids that may have been the likely source of recent bleeding However there was no fresh or old blood in the GI tract and he had a normal liquid brown stool present in the colon The patient tolerated the procedure well without difficulty. WITHDRAWAL TIME: 7 minutes QUALITY OF THE PREP: [place] Bowel Prep score: 9 COMPLICATIONS : None SPECIMENS: Transverse colon polyp DISPOSITION: Transfer back to the floor Stable PLAN: 1. Repeat colonoscopy base on biopsy result likely in 4-5 years 2. Resume GI soft diet advance as tolerated 3. Increase fluid and fiber intake 4. Local anorectal hemorrhoidal care 5. Outpatient follow up with me in 4-6 weeks to review results and discuss further management 6. Patient is stable for discharge from GI point of view STELLA PALOMINO MD Sep 16, 2024 13:23
--- NOTE | 2024-09-16 23:06 | DVHPNRES ---
Progress Note Date Seen: Sep 16, 2024 Resident Creating Document: ALEJANDRO PEREZ RESIDENT Medical Necessity Reason Pt with a Central, PICC or Fol: No Subjective Review of Systems Patient was examined at bedside, colonoscopy was done today,. Patient had a 1-2 mm benign-appearing distal transverse colon polyp that was seen and removed completely via cold biopsy forceps Patient had one to 2+ slightly engorged internal hemorrhoids; mild scattered diverticular disease .Otherwise essentially completely normal colonoscopy examination of the cecum with no fresh or old blood and no colitis We will advanced diet, patient was recommended to follow up with GI for the 6 week to review results and discuss further management. No acute complaints were noted. Patient reports: Feels better Changes from previous H/P or p: Changes Objective vital signs Vital Sign Date Time Temp Pulse Resp B/P (MAP) Pulse Ox O2 Delivery O2 Flow Rate FiO2 09/16/24 21:00 98.5 66 16 116/76 (89) 93 98.5 09/16/24 13:20 Room Air 95 09/16/24 08:00 0 Total Intake and Output 09/15/24 09/15/24 09/16/24 15:00 23:00 07:00 Intake Total 1200 ml 1440 ml 1340 ml Balance 1200 ml 1440 ml 1340 ml medications Current Medications Medications Dose Ordered Sig/Fred Route Start Time Stop Time Status Last Admin Dose Admin Acetaminophen/ Hydrocodone Bitart 1 tab Q4HP PRN PO 09/14/24 15:45 Hold 09/15/24 03:58 1 TAB Ondansetron HCl 4 mg Q4HP PRN IV 09/14/24 15:45 Acetaminophen 650 mg Q6HP PRN PO 09/14/24 15:45 09/16/24 22:45 650 MG Alprazolam 0.25 mg BIDPRN PRN PO 09/14/24 15:45 Aspirin 81 mg DAILY PO 09/15/24 10:00 09/15/24 09:34 81 MG Losartan Potassium 25 mg DAILY PO 09/15/24 10:00 09/15/24 09:34 25 MG Multivitamins 1 tab DAILY PO 09/15/24 10:00 09/15/24 09:34 1 TAB Patient Own Medication 25 mg DAILY PO 09/15/24 10:00 Patient Own Medication 1 tab DAILY PO 09/15/24 10:00 Patient Own Medication 1 tab DAILY PO 09/15/24 10:00 Hydrochlorothiazide 12.5 mg DAILY PO 09/15/24 10:00 09/15/24 09:35 12.5 MG Cyclobenzaprine HCl 10 mg TIDPRN PRN PO 09/14/24 15:45 Pantoprazole Sodium 40 mg BID IV 09/14/24 22:00 09/16/24 22:43 40 MG Diagnostic Test (Pha) 1 strip ACHS 09/14/24 17:00 09/16/24 22:00 1 STRIP Insulin Human Regular HS SC 09/14/24 22:00 Insulin Human Regular AC SC 09/14/24 17:00 09/16/24 16:45 3 UNITS Dextrose 50 ml UD PRN IV 09/14/24 16:15 Morphine Sulfate 1 mg Q6HP PRN IV 09/16/24 11:00 09/16/24 11:32 1 MG Examination: GENERAL:Normal, HEENT:Normal, NECK:Normal, LUNGS:Normal, CVS:Normal, ABDOMEN:Normal, MSK:Normal, SKIN:Normal, NEURO:Normal, :Normal laboratory and microbiology Laboratory Tests 09/16/24 04:39 Test 09/16/24 04:39 Range/Units Serum Glucose 126 H 74-106 mg/dL Problem List/Assessment/Plan Problem List/Assessment/Plan #Hematochezia due to Lower GI bleed likely due to internal hemorrhoids/? Proctitis #Questionable melena due to upper GI bleed? #2+ slightly engorged internal hemorrhoids #mild scattered diverticular disease # 1-2 mm benign-appearing distal transverse colon polyp -patient denies history of radiation -patient reports process of streaks of black stool -gastroenterology on board -monitor H&H -Protonix IV b.i.d. -stool occult blood positive -follow up with GI in 4-6 weeks -DC tomorrow -advance diet as tolerated. Type 2 obesity Lifestyle modification counseling and dietary habits counseling Type 2 diabetes, controlled -sliding scale insulin -monitor glucose, Accu-Cheks History of prostate cancer -surgical management with prostatectomy Dyslipidemia Monitor Primary Hypertension Resume home medications Case discussed with Dr. Garcia Goals of care discussed with the patient for 31 minutes Code status: Full code Discharge tomorrow. Plan discussed with: Patient My Orders My Orders Orders - ALEJANDRO PEREZ RESIDENT Procedure Category Date Status Time Morphine Sulfate PHA 09/16/24 In Process Injection 11:00 Dietary Evaluation Review Comments: Advance to 2 GNa CCHO-60 diet after colonoscopy and medically feasible Expected Outcomes/Goals: graddual wt loss, controlled DM. ALEJANDRO PEREZ RESIDENT Sep 16, 2024 23:06
[2024-09-17 01:00] VITALS: BP 141/72; PULSE 63; RESP 18; TEMP 98.3; O2SAT 97
[2024-09-17 05:00] VITALS: BP 143/82; PULSE 67; RESP 17; TEMP 97.9; O2SAT 95
[2024-09-17 06:41] LABS: Chloride 102 mmol/L (98-107); Potassium 3.8 mmol/L (3.5-5.1); Sodium 138 mmol/L (136-145)
[2024-09-17 06:42] LABS: Anion Gap 8 (5-15); Carbon Dioxide 28 mmol/L (20-31)
[2024-09-17 06:43] LABS: Calcium 10.7 mg/dL (8.7-10.4)
[2024-09-17 06:47] LABS: BUN/Creatinine Ratio 10.5 (10.0-20.0); Blood Urea Nitrogen 10 mg/dL (9-23)
[2024-09-17 06:51] LABS: Glucose 149 mg/dL (74-106)
[2024-09-17 07:03] LABS: Basophils # (auto) 0.1 10 ^3/uL (0-0.2); Basophils % (auto) 1.1 % (0.0-2.0); Eosinophils # (auto) 0.1 10 ^3/uL (0-0.8); Eosinophils % (auto) 1.7 % (0.0-7.0); Hematocrit 54.1 % (41.0-53.0); Lymphocytes # (auto) 1.8 10 ^3/uL (0.4-5.4); Lymphocytes % (auto) 36.1 % (10.0-50.0); Mean Corpuscular Hemoglobin 31.4 pg (28.0-32.0); Mean Corpuscular Hgb Conc. 35.1 g/dL (32.0-36.0); Mean Corpuscular Volume 89.5 fL (80.0-100.0); Monocytes # (auto) 0.6 10 ^3/uL (0-1.3); Monocytes % (auto) 11.8 % (0.0-12.0); Neutrophils # (auto) 2.5 10 ^3/uL (1.6-8.6); Neutrophils % (auto) 49.3 % (37.0-80.0); Nucleated Red Blood Cells % 0.3 %; Platelet Count (auto) 175 10^3/uL (140-450); Red Blood Cells 6.05 10^6/uL (4.5-5.90); Red Cell Distribution Width 13.7 % (11.8-14.3); White Blood Cell 5.1 10^3/uL (4.4-10.8)
--- NOTE | 2024-09-17 07:45 | DVHPN2 ---
Progress Note - Dictate Date Seen: Sep 17, 2024 Medical Necessity Reason Pt with a Central, PICC or Fol: No Subjective PT WITH ABD PAIN HTN HYPERLIPIDEMIA DIABETES NEPHTOPATHY VACULOPATHY HX OF PROSTATE CA NOW WITH RECTAL BLEED/ HEMORRHOIDAL BLEED VS CA VS PROCTATIS vital signs Vital Sign Date Time Temp Pulse Resp B/P (MAP) Pulse Ox O2 Delivery O2 Flow Rate FiO2 09/17/24 05:00 97.9 67 17 143/82 (102) 95 97.9 09/16/24 20:00 Room Air* 0 21 Total Intake and Output 09/16/24 09/16/24 09/17/24 15:00 23:00 07:00 Intake Total 100 ml 950 ml 300 ml Balance 100 ml 950 ml 300 ml medications Current Medications Medications Dose Ordered Sig/Fred Route Start Time Stop Time Status Last Admin Dose Admin Acetaminophen/ Hydrocodone Bitart 1 tab Q4HP PRN PO 09/14/24 15:45 Hold 09/15/24 03:58 1 TAB Ondansetron HCl 4 mg Q4HP PRN IV 09/14/24 15:45 Acetaminophen 650 mg Q6HP PRN PO 09/14/24 15:45 09/17/24 05:59 650 MG Alprazolam 0.25 mg BIDPRN PRN PO 09/14/24 15:45 Aspirin 81 mg DAILY PO 09/15/24 10:00 09/15/24 09:34 81 MG Losartan Potassium 25 mg DAILY PO 09/15/24 10:00 09/15/24 09:34 25 MG Multivitamins 1 tab DAILY PO 09/15/24 10:00 09/15/24 09:34 1 TAB Patient Own Medication 25 mg DAILY PO 09/15/24 10:00 Patient Own Medication 1 tab DAILY PO 09/15/24 10:00 Patient Own Medication 1 tab DAILY PO 09/15/24 10:00 Hydrochlorothiazide 12.5 mg DAILY PO 09/15/24 10:00 09/15/24 09:35 12.5 MG Cyclobenzaprine HCl 10 mg TIDPRN PRN PO 09/14/24 15:45 Pantoprazole Sodium 40 mg BID IV 09/14/24 22:00 09/16/24 22:43 40 MG Diagnostic Test (Pha) 1 strip ACHS 09/14/24 17:00 09/17/24 06:05 1 STRIP Insulin Human Regular HS SC 09/14/24 22:00 Insulin Human Regular AC SC 09/14/24 17:00 09/16/24 16:45 3 UNITS Dextrose 50 ml UD PRN IV 09/14/24 16:15 Morphine Sulfate 1 mg Q6HP PRN IV 09/16/24 11:00 09/16/24 11:32 1 MG laboratory and microbiology Laboratory Tests 09/17/24 05:46 Test 09/17/24 05:46 Range/Units Serum Glucose 149 H 74-106 mg/dL Problem List ABD PAIN HTN HYPERLIPIDEMIA DIABETES NEPHTOPATHY VACULOPATHY HX OF PROSTATE CA NOW WITH RECTAL BLEED/ HEMORRHOIDAL BLEED VS CA VS PROCTATIS Assessment/Plan SERIAL CBC HOLD ALL ANT PLATELET AND ANTICOAGULANTS COLONOSCOPY s/p 1. Patient had a 1-2 mm benign-appearing distal transverse colon polyp that was seen and removed completely via cold biopsy forceps 2. Patient had one to 2+ slightly engorged internal hemorrhoids; mild scattered diverticular disease 3. Otherwise essentially completely normal colonoscopy examination of the cecum with no fresh or old blood and no colitis MAY DC HOME Dietary Evaluation Review Comments: Advance to 2 GNa CCHO-60 diet after colonoscopy and medically feasible Expected Outcomes/Goals: graddual wt loss, controlled DM. Plan discussed with: Patient LUDIN GARDUNO MD Sep 17, 2024 07:45
[2024-09-17 08:00] VITALS: RESP 18; O2SAT 98
[2024-09-17 08:40] VITALS: BP 128/69; PULSE 73; RESP 16; TEMP 98.3; O2SAT 96
[2024-09-17] MEDS ORDERED: LIDO1KIT PR (12:14)
--- NOTE | 2024-09-17 12:42 | DVHDSRES ---
Discharge Summary Date of Admission Resident Creating Document: ALEJANDRO PEREZ RESIDENT Sep 14, 2024 at 15:38 Date of Discharge: Sep 17, 2024 Admitting Diagnosis lower gi bleed Labs/Diagnostic Data: Laboratory Results Test 09/17/24 10:53 09/17/24 05:46 09/15/24 04:37 09/14/24 21:50 POC Glucose 199 mg/dl (70-106) White Blood Count 5.1 10^3/uL (4.4-10.8) Red Blood Count 6.05 10^6/uL (4.5-5.90) Hemoglobin 19.0 g/dL (13.5-17.5) Hematocrit 54.1 % (41.0-53.0) Mean Corpuscular Volume 89.5 fL (80.0-100.0) Mean Corpuscular Hemoglobin 31.4 pg (28.0-32.0) Mean Corpuscular Hemoglobin Concent 35.1 g/dL (32.0-36.0) Red Cell Distribution Width 13.7 % (11.8-14.3) Platelet Count 175 10^3/uL (140-450) Mean Platelet Volume 7.8 fL (6.9-10.8) Neutrophils (%) (Auto) 49.3 % (37.0-80.0) Lymphocytes (%) (Auto) 36.1 % (10.0-50.0) Monocytes (%) (Auto) 11.8 % (0.0-12.0) Eosinophils (%) (Auto) 1.7 % (0.0-7.0) Basophils (%) (Auto) 1.1 % (0.0-2.0) Neutrophils # (Auto) 2.5 10 ^3/uL (1.6-8.6) Lymphocytes # (Auto) 1.8 10 ^3/uL (0.4-5.4) Monocytes # (Auto) 0.6 10 ^3/uL (0-1.3) Eosinophils # (Auto) 0.1 10 ^3/uL (0-0.8) Basophils # (Auto) 0.1 10 ^3/uL (0-0.2) Nucleated Red Blood Cells 0.3 % Sodium Level 138 mmol/L (136-145) Potassium Level 3.8 mmol/L (3.5-5.1) Chloride Level 102 mmol/L (98-107) Carbon Dioxide Level 28 mmol/L (20-31) Anion Gap 8 (5-15) Blood Urea Nitrogen 10 mg/dL (9-23) Creatinine 0.95 mg/dL (0.700-1.30) Glomerular Filtration Rate Calc 87 mL/min (>90) BUN/Creatinine Ratio 10.5 (10.0-20.0) Serum Glucose 149 mg/dL (74-106) Calcium Level 10.7 mg/dL (8.7-10.4) Prothrombin Time 10.8 sec (9.3-11.8) Prothrombin Time INR 1.02 (0.9-1.15) Total Bilirubin 1.3 mg/dL (0.2-1.0) Aspartate Amino Transferase (AST) 14 U/L (13-40) Alanine Aminotransferase (ALT) 30 U/L (7-40) Alkaline Phosphatase 41 U/L (46-116) Total Protein 6.5 g/dL (5.7-8.2) Albumin 4.4 g/dL (3.2-4.8) Stool Occult Blood Positive (Negative) Stool Occult Blood Sample #3 (Negative) Test 09/14/24 13:35 09/14/24 10:24 09/14/24 10:05 Troponin I High Sensitivity 6 ng/L (</=54) Lipase 42 U/L (12-53) Urine Color Light-yellow (Yellow) Urine Clarity Clear (Clear) Urine pH 6.0 (5.0-9.0) Urine Specific [place] 1.030 (1.001-1.035) Urine Protein Negative (Negative) Urine Ketones Negative (Negative) Urine Blood Negative /uL (Negative) Urine Nitrite Negative (Negative) Urine Bilirubin Negative (Negative) Urine Urobilinogen Normal mg/dL (Negative) Urine Leukocyte Esterase Negative /uL (Negative) Urine RBC <1 /hpf (0 - 3) Urine Microscopic WBC < 1 /HPF (0-3) Urine Squamous Epithelial Cells None seen /hpf (<5) Urine Bacteria None seen /hpf (None Seen) Urine Glucose 4+ mg/dL (Normal) Other Laboratory Tests 09/17/24 05:46 Brief Hx & Hospital Course: HPI: 68-year-old male patient with past medical history of type 2 diabetes, hypertension, hyperlipidemia and prostate cancer, he said he had a prostatectomy but he never had radiation therapy or chemotherapy in the past. He presented to the emergency department with a chief complaint of rectal bleeding associated with the abdominal pain and nausea for the last couple of days. Hospital course: He describes rectal bleeding as red bright, after a rectal examination there were no presence of external hemorrhoids Or active bleeding during rectal exam. Per patient he had a similar episodes of rectal bleeding, but related with the hemorrhoids 2-3 years ago that went away on their own and he did not have any problems since then. Patient denies history of recent weight loss Patient last colonoscopy was performed 3 years ago. The found some polyps.medical records were requested . Hemoglobin was found to be on 19.6 likely related with recent use of testosterone due to low testosterone levels. colonoscopy was done today,. Patient had a 1-2 mm benign-appearing distal transverse colon polyp that was seen and removed completely via cold biopsy forceps. Patient had one to 2+ slightly engorged internal hemorrhoids; mild scattered diverticular disease, patient was recommended to follow up with GI for the 6 week to review results and discuss further management. Disposition: Discharge to home Operations or Procedures [place] [id number] Ph: [phone] DIAGNOSTIC IMAGING Diagnostic Imaging Report : [id number] Signed PATIENT: KAREN CABELLO ACCT: [id number] UNIT: [id number] : 1955 LOC: ER ROOM / BED: / AGE / SEX: 68 / M ADM STATUS: REG ER SERVICE 1013 ORDERING PHYSICIAN: MCKENNA MONTANEZ MD PROCEDURE(s): ABPL - CT AB PEL WO CON-NO ORAL OR IV REASON: gibleed ORDER NUMBER(s): [id number], ACCESSION NUMBER(s): [id number] CT ABDOMEN AND PELVIS WITHOUT CONTRAST CLINICAL HISTORY: gibleed TECHNIQUE: Multiple contiguous axial images of the abdomen and pelvis without intravenous contrast. The images were reformatted degenerate coronal and sagittal reconstructions. All CT scans at this medical facility are performed using dose modulation techniques as appropriate to a performed exam including the following:Automated exposure control was utilized; adjustment of the MA and/or KV according to patient size; and use of iterative reconstruction technique. Radiation Dose Information: CT Dose: CTDI volume is 24 mGy. Dose-length product is 1581 mGy*cm Comparison: CT CT AB PEL WITH ORAL CON ONLY on DOS: 03/25/24, [facility]IDC on DOS: 05/01/22 FINDINGS: Evaluation of the abdomen and pelvis is limited without intravenous contrast. The liver, gallbladder, pancreas, kidneys, adrenal glands, and spleen appear within normal limits. There is no gross evidence of abdominal lymphadenopathy. There is no free fluid or free air. The stomach grossly appears unremarkable. The small and large bowel loops demonstrate normal caliber and distribution. A normal appearing appendix is seen in the right lower quadrant abdomen. The abdominal aorta and IVC appear within normal limits. The bladder appears unremarkable for the degree of distention. Pelvic organ appears within normal limits. There is no gross evidence of a pelvic mass. There is no free fluid collection. Lung bases are clear. There is no acute osseous abnormality. IMPRESSION: 1. There is no acute process in the abdomen and pelvis. HS:Y ATED BY: WILLI PEDRO MD DICTATED DATE/TIME: 09/14/241054 SIGNED BY: WILLI PEDRO MD SIGNED DATE/TIME: 09/14/241054 CC: Condition at Discharge: Fair Final Diagnosis/Problems List #Hematochezia due to Lower GI bleed likely due to internal hemorrhoids/? Proctitis #Questionable melena due to upper GI bleed? #2+ slightly engorged internal hemorrhoids #mild scattered diverticular disease # 1-2 mm benign-appearing distal transverse colon polyp #Type 2 obesity #Type 2 diabetes, controlled #History of prostate cancer #Dyslipidemia #Primary Hypertension Discharge Disposition: Home SNF Discharge Will this Physician continue t: No Discharge Instruct/Medications Diet: Regular Activity: No Restrictions, As Tolerated Follow Up/Referral: follow up with pcp within 2 weeks dc clinic Medications: script to pharmacy Discharge Statement: "Patient was advised to return to the ER or call 911 if any headaches, dizziness, shortness of breath, chest pain, abdominal pain, bleeding, fevers, or worsening of medical condition. Patient was counseled about treatment plan, medications, possible side effects, patientverbalized understanding. All questions were answered to the best of my ability. This discharge took greater then 30 minutes in planning, reviewing documentation, counseling the patient, and discussing with other team members." ASSESSMENT ASSESSMENT Assessment lower gi bleed ALEJANDRO PEREZ RESIDENT Sep 17, 2024 12:42
[2024-09-17 13:00] VITALS: BP 133/80; PULSE 74; RESP 16; TEMP 98; O2SAT 96
[2024-09-17] MEDS ORDERED: PANT40TA2 PO (14:52)
== END 2024-09-17 14:30 | disposition home or self-care (01) | DRG 393 ==
LOC: ER 09:57 → OVERFLOW 15:38 → CENTRAL 18:11
PROVIDERS: ADMIT Student in an Organized Health Care Education/Training Program; ATTEND Student in an Organized Health Care Education/Training Program
PROC: 0DBL8ZZ Excision of Transverse Colon, Via Natural or Artificial Opening Endoscopic (ICD-10-PCS; principal; 2024-09-16 12:53)
DX: K64.8 Other hemorrhoids (principal); K57.31 Diverticulosis of large intestine without perforation or abscess with bleeding; C61 Malignant neoplasm of prostate; E78.5 Hyperlipidemia, unspecified; E11.9 Type 2 diabetes mellitus without complications; I10 Essential (primary) hypertension; E66.9 Obesity, unspecified; Z68.35 Body mass index [BMI] 35.0-35.9, adult; K63.5 Polyp of colon; E86.0 Dehydration; Z90.79 Acquired absence of other genital organ(s); Z86.0100 Personal history of colon polyps, unspecified; Z82.3 Family history of stroke; Z79.82 Long term (current) use of aspirin; Z79.899 Other long term (current) drug therapy; Z88.2 Allergy status to sulfonamides; K62.89 Other specified diseases of anus and rectum
CPT/HCPCS: 36415; 45380; 74176; 80048; 80053; 81001; 82270; 82962; 83690; 84484; 85025; 85610; 86850; 86900; 86901; 93005; 96361; 96374; 96375; G0378; J1815; J2250; J2405; J2470